=== PATIENT | male | born 1965 | race Asian ===

== ENCOUNTER 2023-12-09 17:46 | Inpatient (IN) | payer OTHER, SELFPAY ==
[2023-12-09] VITALS (7 sets, daily range): BP systolic 114–136; BP diastolic 81–106; BMI 28.7
--- NOTE | 2023-12-09 18:38 | HPS.HSE ---
Family Physician
-
Family Physician: NO INTERVIEW UNKNOWN
Chief Complaint
-
cabg eval from [facility] with lung mass that needs bronch/bx
History of Present Illness
58-year-old male Mandarin speaking, american sign language interpreter line was used, with a history of diabetes, hyperlipidemia, hypertension, smoking history who presents from outside hospital for CABG eval/high risk PCI along with lung mass likely requiring
bronchoscopy. Currently on heparin drip that was started at outside hospital. Review of records that were transferred with him had triple-vessel disease unable to provide him with CABG therefore was transferred to [place]. However on his CABG
preoperative workup CT chest was completed which demonstrated a left-sided perihilar mass.
Medical History
Past Medical History
Past Medical History: Reports CAD, HTN, Hypercholesterolemia and NIDDM
Past Surgical History: Reports Cholecystectomy
Social History
Unable to obtain full social history at this time due to: Language Barrier
Tobacco: Smoker
Alcohol: None
Drug: None
Personal: ( lives in [place])
Living: With Family
Employment: Employed
Family History
Family History: Hypertension
Allergies / Home Medications
Allergies reflects when Allergies were last updated in [facility].
Home Medications with original date entered in [facility]
Home medication
Metformin 500 mg twice a day
Metoprolol 25 mg daily
Lisinopril 10 mg daily
Atorvastatin 20 mg daily
Jardiance 10 mg once daily
Aspirin 81 mg
Allergy/Medication List:
nkda
Review of Systems
-
History Source: Patient
A 12 point ROS was completed and negative except as noted: Yes
Constitutional: Reports No Symptoms
EENT: Reports No Symptoms
Respiratory: Reports No Symptoms
Cardiac: Reports Other (intermimttent chest tight ness and sob)
Abdomen/GI: Reports No Symptoms
: Reports No Symptoms
Musculoskeletal: Reports No Symptoms
Skin: Reports No Symptoms
Neurological: Reports No Symptoms
Endocrine: Reports No Symptoms
Hematologic/Lymphatic: Reports No Symptoms
Psych: Reports No Symptoms
Physical Exam
Vital Signs
Vital Signs
Temp
98.6 F
12/09/23 17:49
Physical Exam
General: Well Developed, Well Nourished, No Apparent Distress and Comfortable
HEENT: NormoCephalic, Anicteric and Moist mucous membranes
Respiratory: Clear
Cardiac: S1/S2 and Regular Rhythm
Breast: Deferred by me
GI: Soft, Non Tender, Non Distended and Normal Bowel Sounds
Rectal: Deferred by Provider
Genito-urinary: Deferred by me
Musculoskeletal: No Clubbing and No Cyanosis
Skin: Warm and Dry
Neuro: Awake, Alert, Oriented and AO x 3
Psych: Calm and Intact Judgment/Insight
Data Reviewed
-
Old Records: Reviewed
Impression/Plan
-
IMPRESSION:
Lung mass�perihilar
Multivessel CAD
Diabetes
Hypertension
Hyperlipidemia
PLAN:
Left-sided lung mass, strong smoking history, clinical concern for lung CA however still considered unknown significance. Pulmonary to evaluate. Will likely require biopsy with bronchoscopy/
Multivessel CAD noted on left heart catheterization at outside hospital. Currently on heparin drip. Brought over for possible CABG evaluation versus high risk PCI depending on what this lung mass is. Suspect if benign likely can proceed if
cancerous will likely require undergoing treatment prior to CABG however would appreciate cardiology's input on this
-Change Lipitor to high intensity statin 40 mg at bedtime
Diabetes on metformin 500 mg twice daily at home. Accu-Cheks sliding scale carb controlled diet goal blood glucose 140-180
Hypertension continue antihypertensives
Hyperlipidemia continue statin
[2023-12-09] MEDS: LIPITOR 40 MG PO (19:23)
--- NOTE | 2023-12-09 19:28 | PTCARENOTE ---
Received pt. as direct admin into 6010 from [facility] @ 1800. Pt. mandarin speaking w some Jamaican; fish icer line utilized for assessment/admission questions. AAOx3, denies pain; reports chest tightness @ x's and has been ongoing x4 yrs; none @
this time; MD aware. SR on monitor. SpO2 98% on RA. +BS, abd soft/round/nt. Cont b/b. Stand by assisted from stretcher into bed. L AC w heparin gtt infusing- see flow sheet. Skin c/d/i. L arm nicotine patch in place on arrival to unit. Family
@ bedside and pt. updated on plan of care. Nightshift RN updated.
[2023-12-09] MEDS: HEPARIN 25000 UNITS/250 ML IV (19:33)
[2023-12-09 19:45] LABS: Hematocrit 45.3 % (39.0-52.0); Hemoglobin 15.9 g/dL (13.0-18.0); Mean Corp Hgb Conc. 35.1 g/dL (33.0-37.0); Mean Corpuscular Hgb 29.9 pg (27.0-31.0); Mean Corpuscular Volume 85.2 fL (80.0-94.0); Mean Platelet Volume 8.8 fL (7.4-10.4); Platelet Count 352 10^3/uL (130-400); Red Blood Cell Count 5.32 10^6/uL (4.70-6.10); Red Cell Dist. Width 12.5 % (11.5-14.5); White Blood Cell Count 7.7 10^3/uL (4.8-10.8)
[2023-12-09] MEDS: D5/0.45%NACL 1000 IV (19:45)
[2023-12-09 19:58] LABS: APTT 60.3 Sec (23.4-35.0)
--- NOTE | 2023-12-09 20:06 | PTCARENOTE ---
Received patient in bed with family at bedside. [place] Stitcher service used to translate as patient is mandarin speaking. Patient AAOx3, following commands, denying pain. Normal sinus, 70s-80s, BP stable, 110s/80s. Normothermic, palpable radial and
pedal pulses bilaterally, no edema. 96% on room air, lung sounds clear. Abdomen soft, round, nontender, positive bowel sounds. Patient ambulates to bathroom to void, steady gait. Nicotine patch on left arm. Left antecubital PIV WNL, heparin gtt and
IVF gtt ongoing per order. Labs sent, call white within reach.
[2023-12-09 21:40] LABS: Glucose - Point of Care 122 mg/dl (70-99)
[2023-12-10] VITALS (13 sets, daily range): BP systolic 109–137; BP diastolic 75–103; BMI 30.4
[2023-12-10 02:29] LABS: APTT 95.2 Sec (23.4-35.0)
[2023-12-10 06:08] LABS: % Basophils 0.8 % (0-2); % Eosinophils 5.4 % (0-6); % Immature Granulocytes 0.1 % (0-0.5); % Monocytes 6.7 % (1.7-9.3); Absolute Basophils 0.1 10^3/uL (0-0.2); Absolute Eosinophils 0.4 10^3/uL (0-0.7); Absolute Lymphocytes 3.7 10^3/uL (1.2-3.4); Absolute Monocytes 0.5 10^3/uL (0.1-0.6); Hematocrit 44.9 % (39.0-52.0); Hemoglobin 15.6 g/dL (13.0-18.0); Mean Corp Hgb Conc. 34.7 g/dL (33.0-37.0); Mean Corpuscular Hgb 29.6 pg (27.0-31.0); Mean Corpuscular Volume 85.2 fL (80.0-94.0); Mean Platelet Volume 8.8 fL (7.4-10.4); Nucleated Red Blood Cells % 0 % (-); Platelet Count 332 10^3/uL (130-400); Red Blood Cell Count 5.27 10^6/uL (4.70-6.10); Red Cell Dist. Width 12.6 % (11.5-14.5); White Blood Cell Count 7.8 10^3/uL (4.8-10.8)
[2023-12-10 06:51] LABS: ALT (SGPT) 73 U/L (0-50); AST (SGOT) 76 U/L (17-59); Albumin 4.3 g/dl (3.5-5.0); Alkaline Phosphatase 82 U/L (38-126); Blood Urea Nitrogen 18 mg/dl (9-20); Calcium 9.2 mg/dl (8.4-10.2); Carbon Dioxide 21 mmol/L (22-30); Chloride 105 mmol/L (98-107); Estimated Creatinine Clearance 91 ml/min; Glucose 135 mg/dl (70-99); Magnesium 2.2 mg/dl (1.6-2.3); Phosphorus 4.3 mg/dl (2.5-4.5); Potassium 4.4 mmol/L (3.5-5.1); Sodium 135 mmol/L (135-145); Total Bilirubin 0.9 mg/dl (0.2-1.3); Total Protein 7.4 g/dl (6.3-8.2); eGFR > 60.00
--- NOTE | 2023-12-10 07:19 | CON.INTV ---
Addendum entered and electronically signed by Frank Bhakta MD 12/10/23 10:41:
I reviewed CT image. Left lower lobe perihilar area abnormality appears to be improved compared to 12/05/2023, suggesting inflammatory process
At this point, would not pursue bronchoscopic evaluation given high risk coronary disease/cardiac disease
Would consider continued cardiac surgery evaluation
Recommend follow-up CT chest in 1 to [address] surgery
Original Note:
Consultation
Consultation Request
Date/Time Consultation Requested: 12/09
Date/Time Consultation Performed: 12/09
Reason for Consultation: Abnormal CAT scan
Medical History
-
History of Present Illness:
History obtained from the patient using speech language pathologist prn for Mandarin, medical records. Patient with a history of diabetes, hypertension, hyperlipidemia who does not see a physician regularly, presents to [facility] with shortness of breath, chest
pain. Workup revealed severe triple-vessel disease. Patient was started on heparin drip, transferred to [facility] for further evaluation. He was also noted to have possible left-sided perihilar mass per imaging. We are asked to comment
on his pulmonary process. He denies any cough, hemoptysis. Presently denies chest pain, lightheadedness, dizziness, fevers, falls, syncope, trauma. He is able to ambulate without difficulty.
Unfortunate, records are not available for my review at this time (CTS reviewing)
.
PMH: Hypertension, hyperlipidemia, diabetes. History of cholecystectomy. However patient does not see a physician regularly.
Past Medical History
Past Medical History: None (See above)
Past Surgical History: None ( see above)
Social History
Tobacco: Smoker (1 pack a day for greater than 20 years, ongoing)
Alcohol: Occasional (When I am happy)
Drug: None
Personal:
Living: With Family (Currently lives with sister. is in [place]. Patient has been in the [place] 4 years)
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
Environmental Exposures: Denies history of tuberculosis exposure
Family History
Family History: Other (3 siblings healthy. 2 children healthy. Father during surgery for his heart, details unclear. Mother is alive in [place])
Allergies / Home Medications
Allergies
Allergy/AdvReac Type Severity Reaction Status Date / Time
No Known Allergies Allergy Unverified 12/09/23 18:34
Home Medications
�Medication �Instructions �Recorded �Confirmed �Last Taken �Type
aspirin 81 mg tablet 81 mg PO DAILY 12/09/23 12/09/23 Unknown History
atorvastatin 20 mg tablet (Lipitor) 20 mg PO HS 12/09/23 12/09/23 Unknown History
empagliflozin 10 mg tablet 10 mg PO DAILY 12/09/23 12/09/23 Unknown History
(Jardiance)
lisinopril 10 mg tablet 10 mg PO DAILY 12/09/23 12/09/23 Unknown History
metformin 500 mg PO BID 12/09/23 12/09/23 Unknown History
metoprolol succinate 25 mg PO DAILY 12/09/23 12/09/23 Unknown History
Review of Systems
-
All other systems: Negative unless noted
Vitals / Labs / Diagnostic Testing
Vital Signs
Temp Pulse Resp BP Pulse Ox
97.8 F 55 17 117/81 95
12/10/23 07:08 12/10/23 06:00 12/10/23 06:00 12/10/23 06:00 12/10/23 06:00
Lab Data
12/10/23 05:56
12/10/23 05:56
Laboratory Results
12/09/23 12/10/23 12/10/23
19:40 01:51 06:00
PT Cancelled
INR Cancelled
APTT 60.3 H 95.2 H Cancelled
Diagnostic Testing:
Physical Exam
-
HEENT: Normocephalic and Anicteric
Cardiovascular: S1/S2, Regular Rhythm, Murmur (n), Rub (n) and Peripheral Edema (n)
Respiratory: Wheeze (n), Rales (n) and Rhonchi (n)
GI: Soft, Non Distended and Non Tender
Neurology: Awake, Alert and No Motor Deficits (Moves all extremities)
Skin: Other (No clubbing, no cyanosis)
General: Comfortable
Assessment
-
58-year-old male who presented to outside hospital, found to have triple-vessel coronary disease per catheterization. On imaging, was noted to have possible left perihilar mass. Transferred to [facility] for further workup.
Triple-vessel coronary disease
High risk for PCI (per [facility])
Left parahilar abnormality
Inflammatory appearing per my review
Small pulmonary nodule, less than 5 mm
Hyperglycemia, diabetes
Abnormal EKG (inferior Q-wave)
Conditions present prior to admission
Hypertension/hyperlipidemia
Diabetes
20+ pack-year history of smoking, ongoing
Family history of coronary disease
Father during surgery, details unclear
Plan/recommendations
At this time, patient appears to be comfortable. He is without chest pain or shortness of breath. Chest exam is clear
I reviewed his films from [facility]. He has a mild inflammatory appearing left perihilar abnormality, does not appear to be a mass per my review
Images were incomplete for my review
Presently is on heparin therapy. EKG with sinus bradycardia, inferior Q-wave noted
Moving forward
Await repeat imaging of the chest
Suspect inflammatory lesion. Depending on appearance, will determine need for bronchoscopy. Patient would be high risk given coronary disease
Remains on heparin drip. Chest pain-free at this time
Will review [facility] records when available
Discussed with patient importance of tobacco cessation.
He plans to stop smoking
History was obtained using Composer[employer] photographic engineer. All questions answered
Reviewed with critical care nursing, CT surgery PA, primary service
Will follow
[2023-12-10 08:38] LABS: APTT 89.8 Sec (23.4-35.0)
--- NOTE | 2023-12-10 08:58 | CON.CAR ---
Addendum entered and electronically signed by Brayan Guido MD 12/10/23 16:29:
58 yo male with HTN, hyperlipidemia, DM, tobacco transferred to for inpatient CABG evaluation. Cath at [facility] showed multivessel CAD. Echo here is normal. He is currently chest pain free. Exam with RRR, no murmurs, no edema. Tele: SR/SB 50s-60s.
CAD/unstable angina
-cont ASA, heparin gtt, Toprol XL, statin
-inpatient CABG eval
Original Note:
Consultation
Consultation Request
Date/Time Consultation Requested: 12/09/2023 18:20
Date/Time Consultation Performed: 12/10/2023 09:00
Requesting Provider: Dr. Wes Farias
Performing Provider: CARL Truong for Dr. Guido
Reason for Consultation: MVCAD
Medical History
-
Chief Complaint: Chest pain
History of Present Illness:
Will Pham is a 58-year-old male with hypertension, dyslipidemia, type 2 diabetes mellitus on oral agents, family history of coronary artery disease, current smoker and recent diagnosis of multivessel coronary artery disease who presents for CABG
evaluation. Initially, he saw his PCP for chest pressure/squeezing that occurred while he was driving. He was referred for stress testing. This was abnormal. He was referred for cardiac catheterization at [facility]. He was diagnosed with multivessel
coronary artery disease. He was also found to have an abnormal CT scan with what appears to be inflammatory changes. He was transferred to [facility] for evaluation for CABG versus high risk PCI. He had an abdomen/pelvis CT scan this
morning. Pulmonary is following. He will be evaluated by cardiac surgery. He is having no chest pain. He is not short of breath. He is currently on a heparin drip. He is not requiring any vasopressor support.
Past Medical History
Past Medical History: CAD, HTN, Hypercholesterolemia and NIDDM
Past Surgical History: Cholecystectomy and Other (Umbilical hernia repair)
Social History
Tobacco: Smoker
Drug: None
Personal: ( resides in [place])
Living: With Family
Employment: Employed
Family History
Family History: CAD (In mother and father, age is unknown)
Allergies / Home Medications
Allergy/AdvReac Type Severity Reaction Status Date / Time
No Known Allergies Allergy Unverified 12/09/23 18:34
�Medication �Instructions �Recorded �Confirmed �Type
aspirin 81 mg tablet 81 mg PO DAILY 12/09/23 12/09/23 History
atorvastatin 20 mg tablet (Lipitor) 20 mg PO HS 12/09/23 12/09/23 History
empagliflozin 10 mg tablet 10 mg PO DAILY 12/09/23 12/09/23 History
(Jardiance)
lisinopril 10 mg tablet 10 mg PO DAILY 12/09/23 12/09/23 History
metformin 500 mg PO BID 12/09/23 12/09/23 History
metoprolol succinate 25 mg PO DAILY 12/09/23 12/09/23 History
Review of Systems
-
Unable to obtain full review of systems at this time due to: Language Barrier (Mandarin)
All other systems: Negative unless noted
Constitutional: No Symptoms
EENT: No Symptoms
Respiratory: No Symptoms
Cardiac: No Symptoms
Abdomen/GI: No Symptoms
: No Symptoms
Musculoskeletal: No Symptoms
Skin: No Symptoms
Neurological: No Symptoms
Endocrine: No Symptoms
Hematologic/Lymphatic: No Symptoms
Physical Exam
Vital Signs
Temp Pulse Resp BP Pulse Ox
97.8 F 55 17 117/81 95
12/10/23 07:08 12/10/23 06:00 12/10/23 06:00 12/10/23 06:00 12/10/23 06:00
Lab Results
12/10/23 05:56
12/10/23 05:56
Physical Exam
General: Well Developed, Well Nourished, No Apparent Distress and Comfortable
HEENT: Normocephalic, Anicteric and Moist Mucous Membranes
Respiratory: Clear and Non Labored Respirations
Cardiac: S1/S2 and Regular Rhythm; Negative Peripheral Edema
Breast: Deferred by me
GI: Soft, Non Tender, Non Distended and Normal Bowel Sounds
Rectal: Deferred by Provider
Genito-urinary: No Costovertebral Tender
Musculoskeletal: No Clubbing, No Cyanosis and No Edema
Skin: Warm and Dry
Neuro: AO x 3
Hematologic/Lymphatic: No Lymphadenopathy
Psych: Calm
Impression / Plan
-
Background: 58M with hypertension, dyslipidemia, current smoker, and family history of coronary artery disease transferred from [facility] for CABG evaluation
Greenkeeper: Dr. Paige
MVAD, presented as [place]
-CABG evaluation
-Continue ASA/heparin gtt
-Hold ACEi for now (pending possible surgery, date unknown)
-Echocardiogram today
Abnormal chest CT
-Scattered small indeterminate mediastinal lymph nodes, most prominent precarinal and prevascular
-Pulmonary following
NIDDM, Hgba1c pending
HLD, increase atorvastatin to 40mg
Current smoker, 1 PPD for nearly 30 years, full cessation recommended
Obesity, BMI 30.4
Data Reviewed
-
Radiology: Report Reviewed by me (CXR: Mild left to right mediastinal shift.)
Labs: Labs Reviewed by me
Old Records: Requested
--- NOTE | 2023-12-10 09:05 | CONSULT.CT ---
Consultation
-
Date/Time Consultation Requested: 12/09/2023
Date/Time Consultation Performed: 12/10/2023
Performing Provider: Jerson varela
Reason for Consultation: Evaluation for CABG
Patient History
Physicians
Family Physician: Regina Mcduffie
Outpatient Community Educator: Dr. Paige
History of Present Illness
Patient was interviewed with video equities trader. Patient only speaks Ethiopian.
Patient is a 58-year-old male with past medical history of type 2 diabetes mellitus poorly controlled on p.o. meds. Also past medical history of hypertension, hyperlipidemia, obesity, active tobacco abuse.
Patient complains of ongoing mid sternal chest pain. Pain radiates to neck and lasts approximately 15 to 20 minutes and resolves with rest. Chest pain is not aggravated or relieved by exertion or rest. Patient reports pain starting approximately
6 months ago with episodes that now have become more frequent and have increased in severity.
He underwent stress testing which was markedly abnormal with area of severe ischemia in the lateral wall. Patient had extremely poor exercise performance and marked ST segment changes.
He was admitted to [facility] for further evaluation. Cardiac catheterization was performed on December 05, 2023. Left ventricular ejection fraction noted to be 55%. Left main showed minor luminal irregularities. Left anterior descending
coronary artery had a 95% mid LAD stenosis. Left circumflex had a 90% stenosis of the large OM. Right coronary artery had a 75% proximal stenosis. Plan was to transfer to [facility] for CABG.
Prior to transfer patient found to have a left upper lobe nodule which will be evaluated by pulmonary. Patient has been in the [place] since 2019 and denies any history of pneumonia or prior TB exposure. He also has not been compliant with
some of his medications. And has no regular follow-up with PCP.
Plan to be evaluated by pulmonary medicine and repeat CAT scan performed. Discussion for bronchoscopy and follow-up biopsy if needed.
Will be seen by attending cardiothoracic surgeon later today. All preoperative studies will be ordered. Will follow-up after repeat CAT scan, PFTs, ABG, and carotid ultrasound.
Past Medical History
Past Medical History: Angina, CAD, COPD, GUILLORY, HTN, Hypercholesterolemia, NIDDM and SOB
History of gallstone pancreatitis, COPD with long smoking history
Past Surgical History
Past Surgical History: Abdominal and Cholecystectomy
Cholecystectomy in 2022
Umbilical hernia repair in June 2022
Family History
Mother: Still Living (Mother with hypertension, diabetes )
Father: Still Living (Hypertension, hyperlipidemia, diabetes)
Family Medical History: Hypertension
Social History
Alcohol: Occasional
Drug: None
Tobacco: Smoker (Smokes 1 pack/day since 22 years of age)
Personal: ( and daughter live in [place])
Living: With Family (Lives with sister)
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
Allergies
Allergy/AdvReac Type Severity Reaction Status Date / Time
No Known Allergies Allergy Unverified 12/09/23 18:34
Home Medications
�Medication �Instructions �Recorded �Confirmed �Type
aspirin 81 mg tablet 81 mg PO DAILY 12/09/23 12/09/23 History
atorvastatin 20 mg tablet (Lipitor) 20 mg PO HS 12/09/23 12/09/23 History
empagliflozin 10 mg tablet 10 mg PO DAILY 12/09/23 12/09/23 History
(Jardiance)
lisinopril 10 mg tablet 10 mg PO DAILY 12/09/23 12/09/23 History
metformin 500 mg PO BID 12/09/23 12/09/23 History
metoprolol succinate 25 mg PO DAILY 12/09/23 12/09/23 History
Review of Systems
-
History Source: Patient and Transfer Record
General: Reports No Symptoms
HEENT: Reports No Symptoms
Respiratory: Reports SOB and GUILLORY
Cardiac: Reports Chest Pain and CAD
Abdomen/GI: Reports No Symptoms
: Reports No Symptoms
Musculoskeletal: Reports No Symptoms
Skin: Reports No Symptoms
Neurological: Reports No Symptoms
Vascular: Reports No Symptoms
Physical Exam
Vital Signs
Temp 97.8 F 12/10/23 07:08
Temp route: Oral 12/10/23 07:08
Pulse 71 12/10/23 08:12
Rhythm: Normal sinus rhythm 12/09/23 19:50
Resp Rate 17 12/10/23 06:00
Blood pressure 123/90 12/10/23 08:12
MAP (cuff-Yassine Monitor) 101 12/10/23 08:12
SaO2 95 12/10/23 08:12
Oxygen Mode of Delivery Room air 12/09/23 19:54
Can the patient verbally communicate their pain? Yes 12/09/23 19:50
Actual Weight 182 lb 12.211 oz 12/10/23 05:58
Body Mass Index (BMI) 30.4 12/10/23 05:58
Labs
12/10/23 05:56
12/10/23 05:56
PT Cancelled 12/10/23 06:00
APTT 89.8 Sec (23.4-35.0) H 12/10/23 08:19
Exam
General: Well Developed, Well Nourished, No Apparent Distress and Comfortable
HEENT: Normocephalic, Anicteric and Atraumatic
Neck: Trachea Midline
Respiratory: Clear and Crackles (Crackles at bases bilaterally.)
Cardiac: Regular Rhythm
GI: Soft, Non Tender, Non Distended and Normal Bowel Sounds
Rectal: Deferred by Provider
Skin: Warm and Dry
Neuro: Awake, Alert, Oriented and AO x 3
Extremities: Pulses (Distal pulses intact bilaterally, dorsalis pedis pulses +2 bilaterally, posterior tibial pulses +1 bilaterally, no lower extremity edema, no visible varicosities)
Lymph: No Lymphadenopathy
Psych: Calm
Assessment / Plan
-
Assessment:
Three-vessel coronary artery disease, plan for CABG later this week or early next week.
Type 2 diabetes mellitus
Obesity
Hypertension
Hyperlipidemia
Left upper lobe nodule-repeat CAT scan and follow-up bronchoscopy and biopsy if needed
COPD
Tobacco abuse
Plan:
Attending cardiothoracic surgeon to review all studies and will follow-up later and discuss surgical plan and timing with patient.
[2023-12-10] MEDS: NOVOLOG FLEXPEN-LOW RESISTANCE SC ×3 (10:10→17:26)
[2023-12-10 10:18] LABS: Glucose - Point of Care 116 mg/dl (70-99)
[2023-12-10] MEDS: LOW STRENGTH ASPIRIN 81 MG PO (10:20)
[2023-12-10] MEDS: TOPROL XL 25 MG PO (10:21)
[2023-12-10 11:02] LABS: Glycohemoglobin (HgbA1c) 7.5 % (4.0-5.6)
--- NOTE | 2023-12-10 11:35 | CM ---
CM following re: discharge planning.
Reviewed pt's chart, met with pt and pt's sister Yuli at bedside.
Pt is a 58 year old Croatian speaking male, admitted with primary dx of Left-sided lung mass.
Pt was born and grew up in [place], immigrated [place] [facility] [place] [place] 4 years ago, lives with sister in a 2[address], 3 steps to enter. Pt's spouse and daughter live in [place]. Per sister, pt is independent in all areas [place], drives, works.
PCP: Dr. Parker
Pharmacy: [facility].
D/C plan: home with anticipated no needs. Sister to transport at discharge.
CM will follow with discharge plan updates as hospitalization progresses
[2023-12-10 12:06] LABS: Glucose - Point of Care 120 mg/dl (70-99)
[2023-12-10] MEDS: D5/0.45%NACL 1000 IV (12:14)
--- NOTE | 2023-12-10 12:48 | W.PN.HOSP.TC ---
Today's Communication/Plan
-
transfer to IVU
continue hep gtt
CCDiet/Low chol diet
Cabg for 12/16/23
Assessment / Plan
Assessment / Plan
General: No Apparent Distress, mandrin speaking male sitting in bed comfortably
HEENT: Normocephalic, Atraumatic and Moist Mucous Membranes. No JVD
Respiratory: CTA B/L, No rales or crackles or wheezes.
Cardiac: Regular Rhythm and S1/S2.
GI: Soft, NT, ND, BS+
Musculoskeletal: No Cyanosis , No Edema
Skin: Dry
Neuro: aao x3
Psych: normal affect
PLAN:
Left-sided lung mass, for which I discussed this with pulmonary this morning. Believed to be more inflammatory than mass. Will hold off on bronchoscopy at this time. If CT surgery wants it then they would consider at that time.
Multivessel CAD noted on left heart catheterization at outside hospital. Currently on heparin drip. Brought over for possible CABG evaluation versus high risk PCI depending on what this lung mass is. Suspect if benign likely can proceed if
cancerous will likely require undergoing treatment prior to CABG however would appreciate cardiology's input on this
-CT surgery planning for CABG on Saturday (12/15)
-Change Lipitor to high intensity statin 40 mg at bedtime
Diabetes on metformin 500 mg twice daily at home. Accu-Cheks sliding scale carb controlled diet goal blood glucose 140-180
-Metformin held while inpatient. Provide ssi. CCDiet/low chol diet
Hypertension continue antihypertensives
Hyperlipidemia continue statin
Anticipated Discharge: > 48 hours
Subjective/Interval History
-
Date of Service: December 10, 2023
Seen and examined. No new complaints. No acute overnight events
Remains on a heparin drip
Transferring to IVU
Objective Data
-
Labs:
Laboratory Results
12/10/23 12/10/23 12/10/23
01:51 05:56 06:00
WBC 7.8
Hgb 15.6
Hct 44.9
Plt Count 332
PT Cancelled
INR Cancelled
APTT 95.2 H Cancelled
Sodium 135
Potassium 4.4
Chloride 105
Carbon Dioxide 21 L
BUN 18
Creatinine 0.9
Glucose 135 H
Calcium 9.2
Total Bilirubin 0.9
AST 76 H
ALT 73 H
Alkaline Phosphatase 82
12/10/23
08:19
WBC
Hgb
Hct
Plt Count
PT
INR
APTT 89.8 H
Sodium
Potassium
Chloride
Carbon Dioxide
BUN
Creatinine
Glucose
Calcium
Total Bilirubin
AST
ALT
Alkaline Phosphatase
CTChest
IMPRESSION:
Thoracic aorta normal in caliber with some calcific atherosclerotic changes of the thoracic aortic arch.
Abdominal aorta within the limits of normal in caliber with calcific atherosclerotic changes.
Overall limited evaluation without intravenous contrast.
Scattered small indeterminate mediastinal lymph nodes, most prominent precarinal and prevascular.
Prior cholecystectomy.
Colonic diverticulosis.
Vital Signs:
Vital Signs
Temp Pulse Resp BP Pulse Ox
98.5 F 78 20 137/103 97
12/10/23 11:59 12/10/23 12:00 12/10/23 12:31 12/10/23 12:00 12/10/23 12:00
I&O
12/09/23 12/10/23 12/11/23
06:59 06:59 06:59
Intake Total 812 / 826 130 / 130
Balance 812 / 826 130 / 130
--- NOTE | 2023-12-10 13:09 | W.PN.UPDATE ---
Update Note
Progress Note Update
I reviewed CT chest findings at length with patient and sister at bedside who acted as health and safety technician
His left lung abnormality has improved compared to 12/04, but not completely resolved
His small right upper lobe nodule has not changed at all compared to his imaging from 12/04. I cannot appreciate his pulmonary nodule on the left side, this is since resolved as well
Discussed at length his high risk for lung cancer
Discussed absolute importance of tobacco cessation especially given pending surgery
Discussed at length importance of follow-up CT chest in approximately 3 months given risk for lung cancer
Patient should follow-up with pulmonary at that time.
I provided my information to the patient's sister and also left my information in the chart
She understands as does he importance of tobacco cessation and follow-up CT chest in 3 months given risk for lung cancer
Patient has been transferred to IVU. Critical care service will sign off for now
Pending surgery 12/16/2023 noted
Please call with questions
--- NOTE | 2023-12-10 14:36 | PTCARENOTE ---
Patient was updated on plan of care as was his sister utilizing the per diem interpreter ipad. He remains on heparin gtt and IVF. Voiding in the bathroom, denies chest pain/any other pain so far this shift, eating cholesterol lowering diet. Pt waiting to go
to PFT.
--- NOTE | 2023-12-10 15:09 | W.PN.UPDATE ---
Update Note
Progress Note Update
�[email or web address]
Simulated Patient Summary
Procedure Type:�Isolated CABG
PERIOPERATIVE OUTCOME ESTIMATE %
Operative Mortality 0.366%
Morbidity & Mortality 3.99%
Stroke 0.803%
Renal Failure 0.368%
Reoperation 1.99%
Prolonged Ventilation 2.28%
Deep Sternal Wound Infection 0.292%
Long Hospital Stay (>14 days) 1.58%
Short Hospital Stay (<6 days)* 66.6%
*higher values reflect a better outcome
Clinical Summary
Planned Surgery: Isolated CABG, Urgent, First cardiovascular surgery
Demographics: 58 year old, , male, 83kg, 165cm, BMI: 30.5 kg/m�
Insurance/Payor: Commercial
Lab Values: Creatinine: 0.9 mg/dL, Hematocrit: 44.9%, WBC Count: 7.8 10�/�L, Platelet Count: 816011 cells/�L
PreOp Medications: Oral diabetes control
Substance Abuse: Current smoker, Alcohol use: <=1 drink/week
Risk Factors / Comorbidities: Diabetes Mellitus , Hypertension, Family Hx of CAD
Pulmonary RF: Mild CLD
Cardiac Status: NYHA Class II, Ejection Fraction = 55%
--- NOTE | 2023-12-10 16:34 | PTCARENOTE ---
Gave report to receiving RN on IVU, Ana. Patient currently down getting PFT. Pt's sister went with him to test to translate. Pt left with heparin gtt, but will need to be reconnected to IVF upon return to floor
[2023-12-10 17:12] LABS: Glucose - Point of Care 107 mg/dl (70-99)
[2023-12-10] MEDS: LIPITOR 40 MG PO (17:31)
--- NOTE | 2023-12-10 17:43 | W.PN.UPDATE ---
Update Note
Progress Note Update
Patient's tentative surgery date will be SaturdayDecember [address]. I got called to bedside to speak with the patient and his sister. He asked if he could leave and come back for his surgery. When I asked if he had any episodes of chest pain, he
denied. However, when clarifying that we are concerned of chest pain/discomfort, he did endorse some discomfort at [facility]. Therefore, I recommended continuing the heparin infusion and Dr. Stout will meet with him tomorrow.
[2023-12-10] MEDS: HEPARIN 25000 UNITS/250 ML IV (18:39)
--- NOTE | 2023-12-10 19:13 | PTCARENOTE ---
Pt received from ICU at 1650. Pt with his polish speaking sister. Pt's sister relayed that the pt had no chest pain or sob. Heparin infusing as ordered. No c/o offered.
[2023-12-10 22:57] LABS: Glucose - Point of Care 135 mg/dl (70-99)
[2023-12-11] VITALS (7 sets, daily range): BP systolic 101–131; BP diastolic 67–95; BMI 28.4
[2023-12-11 03:34] LABS: Hemoglobin 16.2 g/dL (13.0-18.0); Mean Corp Hgb Conc. 35.2 g/dL (33.0-37.0); Mean Corpuscular Hgb 29.8 pg (27.0-31.0); Mean Corpuscular Volume 84.6 fL (80.0-94.0); Mean Platelet Volume 8.9 fL (7.4-10.4); Platelet Count 328 10^3/uL (130-400); Red Blood Cell Count 5.44 10^6/uL (4.70-6.10); Red Cell Dist. Width 12.4 % (11.5-14.5); White Blood Cell Count 7.6 10^3/uL (4.8-10.8)
[2023-12-11 03:54] LABS: INR 1.09; PT 13.9 Sec (11.4-14.6)
[2023-12-11 03:55] LABS: APTT 83.9 Sec (23.4-35.0)
[2023-12-11 04:28] LABS: ALT (SGPT) 133 U/L (0-50); AST (SGOT) 111 U/L (17-59); Albumin 4.5 g/dl (3.5-5.0); Alkaline Phosphatase 82 U/L (38-126); Blood Urea Nitrogen 18 mg/dl (9-20); Calcium 9.1 mg/dl (8.4-10.2); Carbon Dioxide 22 mmol/L (22-30); Chloride 103 mmol/L (98-107); Direct Bilirubin 0.3 mg/dl (0.0-0.4); Estimated Creatinine Clearance 102 ml/min; Glucose 129 mg/dl (70-99); Potassium 4.7 mmol/L (3.5-5.1); Sodium 135 mmol/L (135-145); Total Bilirubin 1.2 mg/dl (0.2-1.3); Total Protein 7.6 g/dl (6.3-8.2); eGFR > 60.00
[2023-12-11 05:24] LABS: B.E. 0.8 mmol/L; HCO3 24.3 mmol/L (21-28); O2 Saturation % 97.6 % (94-98); PCO2 35 mmHg (35-48); PO2 77 mmHg (83-108); pH 7.45 (7.35-7.45)
--- NOTE | 2023-12-11 07:08 | W.PN.CT ---
Today's Communication / Plan
-
Plan:
-denies CP overnight. On iv Heparin @ 1400 (renewed)
-Patient's tentative surgery date will be SaturdayDecember [address] Stout.
Assessment / Plan
-
Assessment:
Three-vessel coronary artery disease
Type 2 diabetes mellitus
Obesity
Hypertension
Hyperlipidemia
Left upper lobe nodule-repeat CAT scan and follow-up bronchoscopy and biopsy if needed
COPD
Tobacco abuse
Discussed patient care with: Nursing and Care Team
Subjective
-
Date of Service: December 11, 2023
Objective Data
-
Lab Results
12/11/23 03:23
12/11/23 03:23
PT 13.9 Sec (11.4-14.6) 12/11/23 03:23
INR 1.09 12/11/23 03:23
APTT 83.9 Sec (23.4-35.0) H 12/11/23 03:23
Vital Signs
Vital Signs
Temp Pulse Resp BP Pulse Ox
98.2 F 68 16 119/87 98
12/11/23 04:49 12/11/23 04:00 12/11/23 04:49 12/11/23 03:06 12/11/23 04:49
CT Intake/Output/Weight
12/10/23 12/11/23 12/11/23
18:59 06:59 18:59
Intake Total 740 / 1220 480 / 1220
Balance 740 / 1220 480 / 1220
SaO2: 98
Physical Exam
-
General: Awake and AOx3
Cardiovascular: Regular rate & rhythm and No Murmurs
Respiratory: Clear and Decreased Breath Sounds
Extremities: No Edema
Data Reviewed
-
Lab Results: Results Reviewed
Medications: Active Meds Reviewed
Chest X-Ray: Report Reviewed
CT Scan: Report Reviewed
[2023-12-11 07:12] LABS: Glucose - Point of Care 133 mg/dl (70-99)
[2023-12-11] MEDS: NOVOLOG FLEXPEN-LOW RESISTANCE SC ×3 (07:40→18:08)
[2023-12-11] MEDS: LOW STRENGTH ASPIRIN 81 MG PO (09:25)
[2023-12-11] MEDS: TOPROL XL 25 MG PO (09:25)
--- NOTE | 2023-12-11 10:46 | W.PN.UPDATE ---
Update Note
Progress Note Update
CARDIAC SURGERY ATTENDING:
It was my pleasure to meet with Mr. Pham this afternoon at his bedside. We reviewed his pathology, discussed the proposed operative interventions, reviewed the perioperative risks (including, but not limited to, , stroke, [place], arrhythmia,
pneumonia, ROBERTO/F, bleeding, and infection), discussed the expected and hospital postprocedural course, and reviewed the expected outpatient recovery. All questions were answered to the best of my abilities. The patient is agreeable to proceed. I
anticipate CABG x 3 with NORBERTO to LAD, left radial artery to OM, and greater saphenous vein to PDA). We will plan to proceed to the OR this coming Saturday12/16/2023. All of our preoperative discussions were had with the aid of a [place] spanish medical interpreter.
Informed consent was obtained.
Thank you for the opportunity to participate in the care of this kind gentleman.
Please call with any questions or concerns.
Titi Stout MD
[phone]
--- NOTE | 2023-12-11 11:14 | CM ---
Addendum entered by Luna Elliott 12/11/23 12:53:
Gave him the Cardiothoracic Surgery Educational Booklet.
Original Note:
Reviewed chart. Mr. Pham was transferred to IVU. Met with Mr. Pham to review discharge plans. Used the interpreter translator language line to review discharge plans. He states prior to admission he resides with his sister in a one story home with two
steps to enter. He states prior to admission he was independent with ambulation and adls. He states he does not have any DME in the home. He states he has a prescription plan. He states his sister will be available to assist in his care. Medical
work-up in progress. The discharge plan is to return home with his sister and a home visit by the Cardiothoracic Transitional Care Nurse when medically stable,
We reviewed pre-op and post-op routines. Briefly reviewed the shower instructions. We reviewed restrictions including sternal precautions and driving restrictions. Also discussed a home visit by the Cardiothoracic Transitional Care Nurse. He is
agreeable to a home visit. Gave him the Cardiothoracic Transitional Care Nurse. He is agreeable to a home visit. The plan is for CABG on Saturday12/16/23.
[2023-12-11 12:47] LABS: Glucose - Point of Care 100 mg/dl (70-99)
[2023-12-11] MEDS: HEPARIN 25000 UNITS/250 ML IV (12:51)
--- NOTE | 2023-12-11 15:44 | W.PN.HOSP.TC ---
Today's Communication/Plan
-
for cabg. planned for 12/15
continue iv heparin
Assessment / Plan
Assessment / Plan
General: No Apparent Distress, mandrin speaking male sitting in bed comfortably
HEENT: Normocephalic, Atraumatic and Moist Mucous Membranes. No JVD
Respiratory: CTA B/L, No rales or crackles or wheezes.
Cardiac: Regular Rhythm and S1/S2.
GI: Soft, NT, ND, BS+
Musculoskeletal: No Cyanosis , No Edema
Skin: Dry
Neuro: aao x3
Psych: normal affect
PLAN:
Left-sided lung mass, for which I discussed this with pulmonary this morning. Believed to be more inflammatory than mass. Will hold off on bronchoscopy at this time. If CT surgery wants it then they would consider at that time.
Multivessel CAD noted on left heart catheterization at outside hospital. Currently on heparin drip. Brought over for possible CABG evaluation versus high risk PCI depending on what this lung mass is. Suspect if benign likely can proceed if
cancerous will likely require undergoing treatment prior to CABG however would appreciate cardiology's input on this
-CT surgery planning for CABG on Saturday (12/15)
-Change Lipitor to high intensity statin 40 mg at bedtime
Diabetes on metformin 500 mg twice daily at home. Accu-Cheks sliding scale carb controlled diet goal blood glucose 140-180
-Metformin held while inpatient. Provide ssi. CCDiet/low chol diet
Hypertension continue antihypertensives
Hyperlipidemia continue statin
Anticipated Discharge: > 48 hours
Subjective/Interval History
-
Date of Service: December 11, 2023
seen and examined. no new complaitns. no acute overnight events
Objective Data
-
Labs:
Laboratory Results
12/11/23 12/11/23
03:23 05:14
PT 13.9
INR 1.09
APTT 83.9 H
HCO3 24.3
Sodium 135
Potassium 4.7
Chloride 103
Carbon Dioxide 22
BUN 18
Creatinine 0.8
Glucose 129 H
Calcium 9.1
Total Bilirubin 1.2
AST 111 H
ALT 133 H
Alkaline Phosphatase 82
Vital Signs:
Vital Signs
Temp Pulse Resp BP Pulse Ox
98.4 F 61 18 123/78 94
12/11/23 14:53 12/11/23 14:53 12/11/23 14:53 12/11/23 11:25 12/11/23 14:53
I&O
12/10/23 12/11/23 12/12/23
06:59 06:59 06:59
Intake Total 812 / 826 1220 / 1220
Balance 812 / 826 1220 / 1220
[2023-12-11] MEDS: HYDROCORTISONE 1% CREAM 1 APPLIC TOPICAL (16:56)
[2023-12-11] MEDS: LIPITOR 40 MG PO (16:57)
[2023-12-11 17:40] LABS: Glucose - Point of Care 117 mg/dl (70-99)
--- NOTE | 2023-12-11 17:48 | W.PN.PUL3 ---
Today's Communication / Plan
-
Continue with cardiac, CT surgery management
Will be seen by printmaker postsurgery 12/15
Call with questions in the interim
Assessment
-
58-year-old male who presented to outside hospital, found to have triple-vessel coronary disease per catheterization. On imaging, was noted to have possible left perihilar mass. Transferred to [facility] for further workup.
Triple-vessel coronary disease
High risk for PCI (per [facility])
Left parahilar abnormality
Inflammatory appearing per my review
Small pulmonary nodule, less than 5 mm
Hyperglycemia, diabetes
Abnormal EKG (inferior Q-wave)
Conditions present prior to admission
Hypertension/hyperlipidemia
Diabetes
20+ pack-year history of smoking, ongoing
Family history of coronary disease
Father during surgery, details unclear
Plan/recommendations
At this time, patient appears to be comfortable. He is without chest pain or shortness of breath. Chest exam is clear
I reviewed his films from [facility].
I reviewed his current CT chest. Improvement in his left perihilar process
Denies any cough
Moving forward
Continue with management per CT surgery, cardiology
Remains on heparin drip. Chest pain-free at this time
Discussed with patient importance of tobacco cessation.
He plans to stop smoking
Sister was at bedside to act as science interpreter. All questions answered
We will follow from printmaker standpoint after surgery on Friday 12/15
Please call with questions
Subjective Data
-
Date of Service:
Date of Service: December 11, 2023
Subjective:
Patient feels well. Sister at bedside to act as science interpreter. Denies chest pain, shortness of breath. Appears to be in good spirits
Objective Data
Data Reviewed
Vital Signs / I&O / Oxygen:
Vital Signs
Temp Pulse Resp BP Pulse Ox
98.4 F 61 18 123/78 94
12/11/23 14:53 12/11/23 14:53 12/11/23 14:53 12/11/23 11:25 12/11/23 14:53
Intake and Output
12/10/23 12/11/23 12/12/23
06:59 06:59 06:59
Intake Total 812 / 826 1220 / 1220
Balance 812 / 826 1220 / 1220
SaO2 94
Physical Exam
General: Comfortable
HEENT: Normocephalic and Anicteric
Cardiovascular: S1-S2, Regular Rhythm, Murmur (n) and Rub (n)
Respiratory: Wheeze (n), Crackles (n), Rhonchi (n) and Non-Labored Respirations
GI: Soft, Non Distended and Non Tender
Neurology: Awake, Alert and No Motor Deficits
Skin: Cyanosis (n), Jaundice (n) and Rash (n)
Labs/Micro/Reports
Lab Data
12/11/23 03:23
12/11/23 15:43
Laboratory Results
12/11/23 12/11/23
03:23 05:14
PT 13.9
INR 1.09
APTT 83.9 H
pH 7.45
pCO2 35
pO2 77 L
HCO3 24.3
O2 Delivery Level
--- NOTE | 2023-12-11 18:16 | PTCARENOTE ---
Pt c/o of itching areas on right chest, right inner knee and left upper thigh. CV nurse practitioner notified. Medicated with hydrocortisone cream as ordered with relief.
[2023-12-11] MEDS: BENADRYL 25 MG IV (20:49)
--- NOTE | 2023-12-11 22:04 | W.PN.UPDATE ---
Update Note
Progress Note Update
-pt developed itching hives tonight on his abdomen and both thighs, R>L. Denies any difficulty breathing, no stridor or wheeze. No chest pain since has been here. He is feeling better after getting iv Benadryl. Will give another 1-2 doses of po
Benadryl. Discussed with Dr. Stout - will continue iv Heparin and ASA for now. He has not been getting Zestril at (was held). Will hold Lipitor and Toprol for now and review with Cardiology in am. Pt says that he has been taking ASA at home for
the past 1-2 months and had no rash.
[2023-12-11 22:36] LABS: Glucose - Point of Care 120 mg/dl (70-99)
--- NOTE | 2023-12-11 23:22 | PTCARENOTE ---
Pt. came out of room at 2044 complaining of itching/rash bilateral thighs, stomach & back. Raised hives assessed in those areas. VSS, denied any SOB or difficulty breathing, lungs CTA, pulse ox 98% RA. LOREN Bar, notified and came to room
to assess. Heparin held, Benadryl 25 mg IV given with almost immediate resolution of hives. Heparin turned back on at 2144 per [place], pt. still remains hive free; pulse ox 98% RA. Due for Benadryl 25mg PO at midnight. NSR on the monitor, no
other complaints at this time.
[2023-12-12] VITALS (8 sets, daily range): BP systolic 104–125; BP diastolic 74–83; BMI 28.5
[2023-12-12] MEDS: BENADRYL 25 MG PO (00:13)
[2023-12-12 00:43] LABS: % Basophils 0.6 % (0-2); % Eosinophils 4.4 % (0-6); % Immature Granulocytes 0.2 % (0-0.5); % Lymphocytes 52.8 % (20.5-51.1); % Monocytes 6.5 % (1.7-9.3); % Neutrophils 35.5 % (42.2-75.2); Absolute Basophils 0.1 10^3/uL (0-0.2); Absolute Eosinophils 0.4 10^3/uL (0-0.7); Absolute Lymphocytes 4.5 10^3/uL (1.2-3.4); Absolute Monocytes 0.6 10^3/uL (0.1-0.6); Hematocrit 44.8 % (39.0-52.0); Hemoglobin 15.2 g/dL (13.0-18.0); Mean Corp Hgb Conc. 33.9 g/dL (33.0-37.0); Mean Corpuscular Hgb 29.7 pg (27.0-31.0); Mean Corpuscular Volume 87.7 fL (80.0-94.0); Mean Platelet Volume 9.1 fL (7.4-10.4); Nucleated Red Blood Cells % 0 % (-); Platelet Count 307 10^3/uL (130-400); Red Blood Cell Count 5.11 10^6/uL (4.70-6.10); Red Cell Dist. Width 12.1 % (11.5-14.5); White Blood Cell Count 8.5 10^3/uL (4.8-10.8)
[2023-12-12 00:58] LABS: APTT 93.3 Sec (23.4-35.0)
[2023-12-12 01:16] LABS: ALT (SGPT) 126 U/L (0-50); AST (SGOT) 81 U/L (17-59); Albumin 4.4 g/dl (3.5-5.0); Alkaline Phosphatase 87 U/L (38-126); Blood Urea Nitrogen 26 mg/dl (9-20); Calcium 9.3 mg/dl (8.4-10.2); Carbon Dioxide 23 mmol/L (22-30); Chloride 104 mmol/L (98-107); Estimated Creatinine Clearance 80 ml/min; Glucose 127 mg/dl (70-99); Potassium 4.4 mmol/L (3.5-5.1); Sodium 136 mmol/L (135-145); Total Bilirubin 0.7 mg/dl (0.2-1.3); Total Protein 7.5 g/dl (6.3-8.2); eGFR > 60.00
--- NOTE | 2023-12-12 01:17 | PTCARENOTE ---
Addendum entered by Marlyn Taylor RN 12/12/23 03:21:
Pt. requires site interpreter for all communication (Mandarin speaking). Hive situation assessed with site interpreter's assistance twice so far this shift.
Original Note:
Some hives re-appeared behind pt.'s B/L knees, also complaining of itching on right lateral buttocks with some hives visualized. Alisson Oates notified, ordered IV Benadryl again, but pt. refused it because it burned the last time (given in right
hand; IV patent with good blood return and no signs of infiltration/phlebitis). Dose given PO instead. IV team notified and new #22 INT started in right forearm (in case Benadryl IV needed in future), hand site remains intact with no abnormalities
assessed. No changes to hives at this time.
--- NOTE | 2023-12-12 06:03 | W.PN.CT ---
Today's Communication / Plan
-
-hives noted last night- resolved with Benadryl x2 and Hydrocortisone cream
-he hasn't been getting Lisinopril. Put Lipitor and Toprol on hold until discuss with Cardiology (last dose was 12/10). Currently, on ASA and iv Heparin
-LFTs improving. Cr nl 0.9
-plans for CABG on 12/[address] Stout
Assessment / Plan
-
Assessment:
-Hives on 12/11/23
-Three-vessel coronary artery disease- on ASA and Iv Heparin
-DM II
-Hypertension
-Hyperlipidemia
-Left upper lobe nodule-repeat CAT scan and follow-up bronchoscopy and biopsy if needed
-COPD
-Tobacco abuse
-Mildly elevated LFTs - improving
Discussed patient care with: Nursing and Care Team
Subjective
-
Date of Service: December 12, 2023
Objective Data
-
Lab Results
12/12/23 00:37
12/12/23 00:37
PT 13.9 Sec (11.4-14.6) 12/11/23 03:23
INR 1.09 12/11/23 03:23
APTT 93.3 Sec (23.4-35.0) H 12/12/23 00:37
Vital Signs
Vital Signs
Temp Pulse Resp BP Pulse Ox
98.3 F 56 16 104/74 99
12/12/23 02:39 12/12/23 02:37 12/12/23 02:39 12/12/23 02:37 12/12/23 02:39
CT Intake/Output/Weight
12/11/23 12/11/23 12/12/23
06:59 18:59 06:59
Intake Total 480 / 1220 648 / 648
Balance 480 / 1220 648 / 648
SaO2: 99
Physical Exam
-
General: Awake and AOx3
Cardiovascular: Regular rate & rhythm, No Murmurs and No Rub
Respiratory: Clear
skin hives resolved with Benadryl x2 and Hydrocortisone cream
Data Reviewed
-
Lab Results: Results Reviewed
Medications: Active Meds Reviewed
Chest X-Ray: Report Reviewed and Image Reviewed
ECG: Report Reviewed and Image Reviewed
--- NOTE | 2023-12-12 06:14 | SUR.OPER ---
No hives seen this morning, pt. denies itchiness.
[2023-12-12 08:35] LABS: Glucose - Point of Care 132 mg/dl (70-99)
[2023-12-12] MEDS: HEPARIN 25000 UNITS/250 ML IV (08:36)
[2023-12-12] MEDS: LOW STRENGTH ASPIRIN 81 MG PO (08:39)
[2023-12-12] MEDS: HYDROCORTISONE 1% CREAM 1 APPLIC TOPICAL ×2 (08:39→19:45)
[2023-12-12] MEDS: NOVOLOG FLEXPEN-LOW RESISTANCE SC ×2 (08:40→17:11)
[2023-12-12 11:26] LABS: Glucose - Point of Care 164 mg/dl (70-99)
[2023-12-12] MEDS: NOVOLOG FLEXPEN-LOW RESISTANCE 1 UNITS SC (11:27)
--- NOTE | 2023-12-12 14:03 | W.PN.CD ---
Today's Communication / Plan
-
-CABG planned for 12/16/[address] Stout.
-Continue ASA/heparin gtt.
-Echocardiogram yesterday revealed an LVEF of 55-60% with no significant valve disease.
Impression / Plan
-
Background: 58M with hypertension, dyslipidemia, current smoker, and family history of coronary artery disease transferred from [facility] for CABG evaluation
Credit Card Clerk: Dr. Paige
[facility], presented as [place]
-CABG planned for 12/16/[address] Stout.
-Continue ASA/heparin gtt.
-Continue atorvastatin and metoprolol succinate.
-Holding ACEi for now in anticipation of surgery.
-Echocardiogram yesterday revealed an LVEF of 55-60% with no significant valve disease.
-Continue export documents clerk.
Abnormal chest CT
-Scattered small indeterminate mediastinal lymph nodes, most prominent precarinal and prevascular
-Pulmonary following
NIDDM, Hgba1c 7.5%.
HLD atorvastatin was increased from 20 mg daily to to 40 mg daily.
Current smoker, 1 PPD for nearly 30 years, full cessation recommended
Obesity, BMI 30.4
Physical Exam
Vital Signs/Labs
Vital Signs
Temp Pulse Resp BP Pulse Ox
99.1 F 63 20 122/77 97
12/12/23 11:25 12/12/23 11:28 12/12/23 11:25 12/12/23 11:28 12/12/23 11:25
12/11/23 12/12/23 12/13/23
06:59 06:59 06:59
Actual Weight 77.4 kg 77.7 kg
12/12/23 00:37
12/12/23 00:37
PT 13.9 Sec (11.4-14.6) 12/11/23 03:23
INR 1.09 12/11/23 03:23
APTT 93.3 Sec (23.4-35.0) H 12/12/23 00:37
Magnesium 2.2 mg/dl (1.6-2.3) 12/10/23 05:56
Physical Exam
Constitutional: No acute distress and Comfortable
EENT: Anicteric
Cardiovascular: Rhythm & rate is regular, Pedal edema is absent, Systolic murmur absent and S1S2 is normal
Respiratory: Respiratory effort normal and Lungs clear to auscul.
GI: Soft
Neuro/Psych: AO x 3
Other: Skin (Warm, dry, intact)
Data Reviewed
-
Date of Service: December 12, 2023
EKG: Tracing Personally Visualized and interpreted (Telemetry: Sinus rhythm)
Echo: Report Reviewed by me (12/10/2023: EF 55-60%; no significant valve disease.)
Medical Tests (PFT, Pathology etc): Discussed with Patient
Labs: Labs Reviewed by me
--- NOTE | 2023-12-12 15:07 | PTCARENOTE ---
The patient has been ambulatory in his room all shift. He complained of itching in his right antecubital area this morning. Small red raised bumps were noted and hydrocortisone cream was applied as ordered. His vitals remain stable. NSR/SB has been
noted on the monitor with HRs fluctuating in the 50s and 60s. He has had no complaints of pain. Heparin gtt remains therapeutic at 1400 units/hr.
--- NOTE | 2023-12-12 15:11 | W.PN.HOSP.TC ---
Today's Communication/Plan
-
Continue heparin drip
Continue aspirin
For CABG on 12/15
Assessment / Plan
Assessment / Plan
General: No Apparent Distress, mandrin speaking male sitting in bed comfortably
HEENT: Normocephalic, Atraumatic and Moist Mucous Membranes. No JVD
Respiratory: CTA B/L, No rales or crackles or wheezes.
Cardiac: Regular Rhythm and S1/S2.
GI: Soft, NT, ND, BS+
Musculoskeletal: No Cyanosis , No Edema
Skin: Dry
Neuro: aao x3
Psych: normal affect
PLAN:
Left-sided lung mass, for which I discussed this with pulmonary this morning. Believed to be more inflammatory than mass. Will hold off on bronchoscopy at this time. If CT surgery wants it then they would consider at that time.
Multivessel CAD noted on left heart catheterization at outside hospital. Currently on heparin drip. Brought over for possible CABG evaluation versus high risk PCI depending on what this lung mass is. Suspect if benign likely can proceed if
cancerous will likely require undergoing treatment prior to CABG however would appreciate cardiology's input on this
-CT surgery planning for CABG on Saturday (12/15)
-Change Lipitor to high intensity statin 40 mg at bedtime
-Continue heparin drip and aspirin
Diabetes on metformin 500 mg twice daily at home. Accu-Cheks sliding scale carb controlled diet goal blood glucose 140-180
-Metformin held while inpatient. Provide ssi. CCDiet/low chol diet
Hypertension continue antihypertensives
Hyperlipidemia continue statin
Anticipated Discharge: 24 - 48 hours
Subjective/Interval History
-
Date of Service: December 12, 2023
Seen and examined. No new complaints. No acute overnight events.
Remains on heparin drip. No evidence of active bleeding. Hemoglobin stable.
Objective Data
-
Vital Signs:
Vital Signs
Temp Pulse Resp BP Pulse Ox
98.7 F 63 20 122/77 97
12/12/23 15:03 12/12/23 11:28 12/12/23 15:03 12/12/23 11:28 12/12/23 15:03
I&O
12/11/23 12/12/23 12/13/23
06:59 06:59 06:59
Intake Total 1220 / 1220 648 / 648 360 / 360
Balance 1220 / 1220 648 / 648 360 / 360
[2023-12-12 17:10] LABS: Glucose - Point of Care 124 mg/dl (70-99)
[2023-12-12] MEDS: LIPITOR 40 MG PO (17:48)
[2023-12-12 22:28] LABS: Glucose - Point of Care 127 mg/dl (70-99)
[2023-12-13 02:27] VITALS: BP 116/72
[2023-12-13] MEDS: HEPARIN 25000 UNITS/250 ML IV (02:31)
[2023-12-13 02:32] LABS: Hematocrit 43.8 % (39.0-52.0); Hemoglobin 15.8 g/dL (13.0-18.0); Mean Corp Hgb Conc. 36.1 g/dL (33.0-37.0); Mean Corpuscular Hgb 30.3 pg (27.0-31.0); Mean Corpuscular Volume 83.9 fL (80.0-94.0); Platelet Count 315 10^3/uL (130-400); Red Blood Cell Count 5.22 10^6/uL (4.70-6.10); Red Cell Dist. Width 12.3 % (11.5-14.5); White Blood Cell Count 9.6 10^3/uL (4.8-10.8)
--- NOTE | 2023-12-13 02:37 | PTCARENOTE ---
Pt. had hives on his upper inner thighs at beginning of shift but they went away after hydrocortisone cream was applied. Alisson Oates in room at the time, assessed by her. No other hives at this time. VSS; no complaints of chest pain/discomfort,
NSR-SB on the monitor.
--- NOTE | 2023-12-13 02:41 | W.PN.CT ---
Today's Communication / Plan
-
-no issues overnight
-hives seemed improved with Benadryl
-pt is on ASA, Toprol, Lipitor, Iv Heparin (renewed)
-plans for CABG on 12/[address] Stout
Assessment / Plan
-
Assessment:
-Hives on 12/11/23
-Three-vessel coronary artery disease- on ASA and Iv Heparin
-DM II
-Hypertension
-Hyperlipidemia
-Left upper lobe nodule-repeat CAT scan and follow-up bronchoscopy and biopsy if needed
-COPD
-Tobacco abuse
-Mildly elevated LFTs - improving
Discussed patient care with: Nursing and Care Team
Subjective
-
Date of Service: December 13, 2023
Objective Data
-
PT 13.9 Sec (11.4-14.6) 12/11/23 03:23
INR 1.09 12/11/23 03:23
APTT 93.3 Sec (23.4-35.0) H 12/12/23 00:37
Vital Signs
Vital Signs
Temp Pulse Resp BP Pulse Ox
98.3 F 56 18 119/83 98
12/13/23 02:28 12/12/23 22:30 12/13/23 02:28 12/12/23 22:30 12/13/23 02:28
CT Intake/Output/Weight
12/12/23 12/12/23 12/13/23
06:59 18:59 06:59
Intake Total 648 / 648 360 / 360
Balance 648 / 648 360 / 360
SaO2: 98
Physical Exam
-
General: Awake and AOx3
Cardiovascular: Regular rate & rhythm and No Murmurs
Respiratory: Clear
Extremities: No Edema
Abdomen: soft, nontender, nondistended, no hives on abdomen or back, small rash on R thigh
Data Reviewed
-
Lab Results: Results Reviewed
Medications: Active Meds Reviewed
Chest X-Ray: Report Reviewed and Image Reviewed
ECG: Report Reviewed and Image Reviewed
[2023-12-13 02:50] LABS: APTT 111.8 Sec (23.4-35.0)
[2023-12-13 03:03] LABS: ALT (SGPT) 113 U/L (0-50); AST (SGOT) 58 U/L (17-59); Albumin 4.7 g/dl (3.5-5.0); Alkaline Phosphatase 83 U/L (38-126); Blood Urea Nitrogen 20 mg/dl (9-20); Calcium 9.9 mg/dl (8.4-10.2); Carbon Dioxide 24 mmol/L (22-30); Chloride 101 mmol/L (98-107); Estimated Creatinine Clearance 72 ml/min; Glucose 123 mg/dl (70-99); Potassium 4.6 mmol/L (3.5-5.1); Sodium 137 mmol/L (135-145); Total Bilirubin 0.9 mg/dl (0.2-1.3); Total Protein 7.6 g/dl (6.3-8.2); eGFR > 60.00
[2023-12-13 07:23] VITALS: BP 121/73
[2023-12-13 07:25] LABS: Glucose - Point of Care 126 mg/dl (70-99)
[2023-12-13] MEDS: NOVOLOG FLEXPEN-LOW RESISTANCE SC ×3 (08:12→17:49)
[2023-12-13] MEDS: HYDROCORTISONE 1% CREAM 1 APPLIC TOPICAL ×2 (08:26→20:08)
[2023-12-13] MEDS: LOW STRENGTH ASPIRIN 81 MG PO (08:26)
[2023-12-13] MEDS: TOPROL XL 25 MG PO (08:26)
--- NOTE | 2023-12-13 09:03 | W.PN.CD ---
Today's Communication / Plan
-
continue ASA, heparin gtt, beta cecilia, statin
Impression / Plan
-
Background: 58M with hypertension, dyslipidemia, current smoker, and family history of coronary artery disease transferred from [facility] for CABG evaluation
Funeral Home Director: Dr. Paige
Multivessel CAD: presented as [place]
-CABG planned for 12/16/[address] Stout.
-Continue ASA/heparin gtt.
-monitoring of PTT, Hgb, tele
-Continue atorvastatin and metoprolol succinate.
-Holding ACEi for now in anticipation of surgery.
-Echocardiogram here revealed an LVEF of 55-60% with no significant valve disease.
Abnormal chest CT
-Scattered small indeterminate mediastinal lymph nodes, most prominent precarinal and prevascular
-Pulmonary following
NIDDM, Hgba1c 7.5%.
HLD atorvastatin was increased from 20 mg daily to to 40 mg daily.
Current smoker, 1 PPD for nearly 30 years, full cessation recommended
Obesity, BMI 30.4
Physical Exam
Vital Signs/Labs
Vital Signs
Temp Pulse Resp BP Pulse Ox
98.4 F 54 20 121/73 95
12/13/23 07:21 12/13/23 07:23 12/13/23 07:21 12/13/23 07:23 12/13/23 07:23
12/12/23 12/13/23 12/14/23
06:59 06:59 06:59
Actual Weight 77.7 kg
12/13/23 02:27
12/13/23 02:26
PT 13.9 Sec (11.4-14.6) 12/11/23 03:23
INR 1.09 12/11/23 03:23
APTT 111.8 Sec (23.4-35.0) H 12/13/23 02:26
Magnesium 2.2 mg/dl (1.6-2.3) 12/10/23 05:56
Physical Exam
Constitutional: No acute distress and Comfortable
EENT: Moist mucous membranes
Cardiovascular: Rhythm & rate is regular, Pedal edema is absent, JVD pressure is normal and Systolic murmur absent
Respiratory: Respiratory effort normal and Lungs clear to auscul.
GI: Soft and Distention absent
Neuro/Psych: AO x 3
Data Reviewed
-
Date of Service: December 13, 2023
EKG: Other (Tele: SR/SB 50s-60s)
Labs: Labs Reviewed by me
[2023-12-13 09:32] LABS: APTT 136.1 Sec (23.4-35.0)
[2023-12-13 11:02] VITALS: BMI 28.3
[2023-12-13 11:16] VITALS: BP 113/77
--- NOTE | 2023-12-13 12:20 | W.PN.HOSP.TC ---
Today's Communication/Plan
-
Continue to follow PTT. Continue heparin drip, follow heparin protocol
For CABG on 12/15
Assessment / Plan
Assessment / Plan
General: No Apparent Distress, mandrin speaking male sitting in bed comfortably
HEENT: Normocephalic, Atraumatic and Moist Mucous Membranes. No JVD
Respiratory: CTA B/L, No rales or crackles or wheezes.
Cardiac: Regular Rhythm and S1/S2.
GI: Soft, NT, ND, BS+
Musculoskeletal: No Cyanosis , No Edema
Skin: Dry
Neuro: aao x3
Psych: normal affect
PLAN:
Left-sided lung mass, for which I discussed this with pulmonary this morning. Believed to be more inflammatory than mass. Will hold off on bronchoscopy at this time. If CT surgery wants it then they would consider at that time.
Multivessel CAD noted on left heart catheterization at outside hospital. Currently on heparin drip. Brought over for possible CABG evaluation versus high risk PCI depending on what this lung mass is. Suspect if benign likely can proceed if
cancerous will likely require undergoing treatment prior to CABG however would appreciate cardiology's input on this
-CT surgery planning for CABG on Saturday (12/15)
-Change Lipitor to high intensity statin 40 mg at bedtime
-Continue heparin drip and aspirin
Diabetes on metformin 500 mg twice daily at home. Accu-Cheks sliding scale carb controlled diet goal blood glucose 140-180
-Metformin held while inpatient. Provide ssi. CCDiet/low chol diet
Hypertension continue antihypertensives
Hyperlipidemia continue statin
Anticipated Discharge: > 48 hours
Subjective/Interval History
-
Date of Service: December 13, 2023
Seen and examined. No new complaints. No acute overnight events.
Heparin held due to high PTT
Objective Data
-
Labs:
Laboratory Results
12/13/23 12/13/23 12/13/23
02:26 02:27 09:05
WBC 9.6
Hgb 15.8
Hct 43.8
Plt Count 315
APTT 111.8 H 136.1 H
Sodium 137
Potassium 4.6
Chloride 101
Carbon Dioxide 24
BUN 20
Creatinine 1.0
Glucose 123 H
Calcium 9.9
Total Bilirubin 0.9
AST 58
ALT 113 H
Alkaline Phosphatase 83
12/13/23
17:00
WBC
Hgb
Hct
Plt Count
APTT Pending
Sodium
Potassium
Chloride
Carbon Dioxide
BUN
Creatinine
Glucose
Calcium
Total Bilirubin
AST
ALT
Alkaline Phosphatase
Vital Signs:
Vital Signs
Temp Pulse Resp BP Pulse Ox
99 F 62 20 121/73 98
12/13/23 11:14 12/13/23 10:00 12/13/23 11:14 12/13/23 07:23 12/13/23 11:14
I&O
12/12/23 12/13/23 12/14/23
06:59 06:59 06:59
Intake Total 648 / 648 840 / 840
Balance 648 / 648 840 / 840
[2023-12-13 13:09] LABS: Glucose - Point of Care 136 mg/dl (70-99)
[2023-12-13 15:18] VITALS: BP 121/75
[2023-12-13 17:45] LABS: Glucose - Point of Care 124 mg/dl (70-99)
[2023-12-13] MEDS: LIPITOR 40 MG PO (18:07)
[2023-12-13 19:08] VITALS: BP 132/80
[2023-12-13 21:40] LABS: Glucose - Point of Care 109 mg/dl (70-99)
[2023-12-13 21:55] VITALS: BP 124/78
[2023-12-14] MEDS: HEPARIN 25000 UNITS/250 ML IV ×2 (00:36→20:15)
[2023-12-14 00:52] LABS: APTT 116.1 Sec (23.4-35.0)
--- NOTE | 2023-12-14 01:31 | PTCARENOTE ---
No complaints overnight. SB HR in the 50's. Heparin infusing at 12cc/hr. Left arm limb restriction, band present. Call white in reach
--- NOTE | 2023-12-14 03:59 | W.PN.CT ---
Today's Communication / Plan
-
-No issues overnight. Denies CP/SOB
-Cont. current meds (ASA, Toprol, Lipitor, Iv Heparin)
-Ongoing preop workup
-Will d/c heparin gtt airborne mission systems superintendent to OR
-LUE limb alert, for possible Left Radial artery conduit
-For CABG by Dr. Stout on Friday 12/15
Assessment / Plan
-
Assessment:
-High risk PCI transfer from [facility] on 12/09/23
-Three-vessel coronary artery disease- on ASA and Iv Heparin
-[place]
-Recent hives, 12/11/23
-Hypertension
-Hyperlipidemia
-Class 1 obesity (BMI 30)
-Left upper lobe nodule (improved and cleared for surgery by Pulm)
-COPD
-Active tobacco abuse (1 pk/day x 30 yrs)
-Mildly elevated LFTs - improving
-S/P Cholecystectomy, 2022
-S/P umbilical hernia repair, 06/2022
Discussed patient care with: Cardiology, Nursing, Respiratory Therapy, Pharmacy and Care Team
Subjective
-
Date of Service: December 14, 2023
No issues overnight, denies CP/SOB
Objective Data
-
Lab Results
12/13/23 02:27
12/13/23 02:26
PT 13.9 Sec (11.4-14.6) 12/11/23 03:23
INR 1.09 12/11/23 03:23
APTT 116.1 Sec (23.4-35.0) H 12/14/23 00:33
Vital Signs
Vital Signs
Temp Pulse Resp BP Pulse Ox
98.5 F 55 18 124/78 96
12/13/23 22:29 12/14/23 00:00 12/13/23 22:29 12/13/23 21:55 12/13/23 22:29
CT Intake/Output/Weight
12/13/23 12/13/23 12/14/23
06:59 18:59 06:59
Intake Total 480 / 840
Balance 480 / 840
SaO2: 96 (RA)
Physical Exam
-
General: Awake, Oriented and AOx3
Cardiovascular: Regular rate & rhythm (sinus bradycardia ) and No Murmurs
Respiratory: Clear
Extremities: No Edema
Data Reviewed
-
Lab Results: Results Reviewed
Medications: Active Meds Reviewed
Chest X-Ray: Report Reviewed and Image Reviewed
ECG: Report Reviewed and Image Reviewed
[2023-12-14 04:21] VITALS: BP 135/78
[2023-12-14 07:06] VITALS: BP 110/74
[2023-12-14 07:07] VITALS: BMI 28.1
[2023-12-14 07:13] LABS: Glucose - Point of Care 125 mg/dl (70-99)
[2023-12-14] MEDS: NOVOLOG FLEXPEN-LOW RESISTANCE SC ×3 (07:19→18:08)
--- NOTE | 2023-12-14 08:31 | W.PN.CD ---
Today's Communication / Plan
-
IV heparin
In-house CABG as planned
Impression / Plan
-
Background: 58M with hypertension, dyslipidemia, current smoker, and family history of coronary artery disease transferred from [facility] for CABG evaluation
Last Remodeler Repairer: Dr. Paige
Multivessel CAD: presented as [place]
-CABG planned for 12/16/[address] Stout.
-Continue ASA/heparin gtt.
-monitoring of PTT, Hgb, tele
-Continue atorvastatin and metoprolol succinate.
-Holding ACEi for now in anticipation of surgery.
Abnormal chest CT
-Scattered small indeterminate mediastinal lymph nodes, most prominent precarinal and prevascular
-Pulmonary following
NIDDM, Hgba1c 7.5%.
HLD atorvastatin was increased from 20 mg daily to to 40 mg daily.
Current smoker, 1 PPD for nearly 30 years, full cessation recommended
Obesity, BMI 30.4
Subjective/Interval Hx:
Quiet night. Tele normal
Data:
Echo 12/2023 LVEF of 55-60% with no significant valve disease.
Physical Exam
Vital Signs/Labs
Vital Signs
Temp Pulse Resp BP Pulse Ox
97.6 F 55 18 135/78 96
12/14/23 07:07 12/14/23 04:21 12/14/23 07:07 12/14/23 04:21 12/14/23 07:07
12/13/23 12/14/23 12/15/23
06:59 06:59 06:59
Actual Weight 77.7 kg 77.2 kg 76.7 kg
12/13/23 02:27
12/13/23 02:26
PT 13.9 Sec (11.4-14.6) 12/11/23 03:23
INR 1.09 12/11/23 03:23
APTT 116.1 Sec (23.4-35.0) H 12/14/23 00:33
Magnesium 2.2 mg/dl (1.6-2.3) 12/10/23 05:56
Physical Exam
Constitutional: No acute distress
EENT: Anicteric
Cardiovascular: Rhythm & rate is regular and Pedal edema is absent
Respiratory: Respiratory effort normal and Lungs clear to auscul.
GI: Soft and Distention absent
Neuro/Psych: Alert
Data Reviewed
-
Date of Service: December 14, 2023
[2023-12-14] MEDS: TOPROL XL 25 MG PO (08:44)
[2023-12-14] MEDS: HYDROCORTISONE 1% CREAM TOPICAL ×3 (08:45→20:22)
[2023-12-14] MEDS: LOW STRENGTH ASPIRIN 81 MG PO (08:45)
[2023-12-14 08:55] LABS: APTT 69.9 Sec (23.4-35.0)
--- NOTE | 2023-12-14 10:24 | PTCARENOTE ---
No hives or rash noted on Pt, Pt denies rash now.
[2023-12-14 11:12] VITALS: BP 111/77
[2023-12-14 11:17] LABS: Glucose - Point of Care 133 mg/dl (70-99)
--- NOTE | 2023-12-14 13:23 | W.PN.HOSP.TC ---
Today's Communication/Plan
-
continue hep gtt
npo start 12/15 at 0001 for CABG
Assessment / Plan
Assessment / Plan
General: No Apparent Distress, mandrin speaking male sitting in bed comfortably
HEENT: Normocephalic, Atraumatic and Moist Mucous Membranes. No JVD
Respiratory: CTA B/L, No rales or crackles or wheezes.
Cardiac: Regular Rhythm and S1/S2.
GI: Soft, NT, ND, BS+
Musculoskeletal: No Cyanosis , No Edema
Skin: Dry
Neuro: aao x3
Psych: normal affect
PLAN:
Left-sided lung mass, for which I discussed this with pulmonary this morning. Believed to be more inflammatory than mass. Will hold off on bronchoscopy at this time. If CT surgery wants it then they would consider at that time.
Multivessel CAD noted on left heart catheterization at outside hospital. Currently on heparin drip. Brought over for possible CABG evaluation versus high risk PCI depending on what this lung mass is. Suspect if benign likely can proceed if
cancerous will likely require undergoing treatment prior to CABG however would appreciate cardiology's input on this
-CT surgery planning for CABG on Saturday (12/15)
-Change Lipitor to high intensity statin 40 mg at bedtime
-Continue heparin drip and aspirin
Diabetes on metformin 500 mg twice daily at home. Accu-Cheks sliding scale carb controlled diet goal blood glucose 140-180
-Metformin held while inpatient. Provide ssi. CCDiet/low chol diet
Hypertension continue antihypertensives
Hyperlipidemia continue statin
Anticipated Discharge: > 48 hours
Subjective/Interval History
-
Date of Service: December 14, 2023
seen and examined
no new complaints
no acute overnight events
Objective Data
-
Labs:
Laboratory Results
12/14/23 12/14/23 12/14/23
00:33 08:02 15:00
APTT 116.1 H 69.9 H Pending
Vital Signs:
Vital Signs
Temp Pulse Resp BP Pulse Ox
98.6 F 58 18 110/74 95
12/14/23 11:12 12/14/23 10:00 12/14/23 11:12 12/14/23 08:44 12/14/23 11:12
I&O
12/13/23 12/14/23 12/15/23
06:59 06:59 06:59
Intake Total 840 / 840 376 / 376
Balance 840 / 840 376 / 376
[2023-12-14 15:43] VITALS: BP 120/86
[2023-12-14 17:38] LABS: APTT 75.5 Sec (23.4-35.0)
[2023-12-14 18:06] LABS: Glucose - Point of Care 110 mg/dl (70-99)
[2023-12-14] MEDS: LIPITOR 40 MG PO (18:07)
[2023-12-14 20:06] VITALS: BP 106/70
[2023-12-14 21:25] LABS: Glucose - Point of Care 192 mg/dl (70-99)
[2023-12-14 22:33] VITALS: BP 100/76
--- NOTE | 2023-12-14 22:43 | PTCARENOTE ---
Patient walking in room. Heparin infusing @ 12cc/hr. PTT collected. Denies pain, SR/SB on telemetry. LUE limb restriction, pink band in place, lights dimmed call white in reach
[2023-12-14 22:56] LABS: APTT 95.9 Sec (23.4-35.0)
[2023-12-15] VITALS (8 sets, daily range): BP systolic 106–117; BP diastolic 64–81; BMI 28.4
--- NOTE | 2023-12-15 05:08 | W.PN.CT ---
Today's Communication / Plan
-
-No issues overnight. Denies CP/SOB
-Cont. current meds (ASA, Toprol XL, Lipitor, Heparin gtt)
-Avoid SHALOM-I/ARBs 48 hrs prior to surgery
-Will d/c heparin gtt air traffic control equipment repairer to OR
-Ongoing preop workup
-LUE limb alert, for possible Left Radial artery conduit
-For CABG by Dr. Stout tomorrow 12/15
Assessment / Plan
-
Assessment:
-High risk PCI transfer from [facility] on 12/09/23
-Three-vessel coronary artery disease- on ASA and Iv Heparin
-[place]
-Recent hives, 12/11/23
-Hypertension
-Hyperlipidemia
-Class 1 obesity (BMI 30)
-Left upper lobe nodule (improved and cleared for surgery by Pulm)
-COPD
-Active tobacco abuse (1 pk/day x 30 yrs)
-Mildly elevated LFTs - improving
-S/P Cholecystectomy, 2022
-S/P umbilical hernia repair, 06/2022
Discussed patient care with: Cardiology, Nursing, Respiratory Therapy, Pharmacy and Care Team
Subjective
-
Date of Service: December 15, 2023
No major issues overnight. Denies CP/SOB
Objective Data
-
Lab Results
12/13/23 02:26
PT 13.9 Sec (11.4-14.6) 12/11/23 03:23
INR 1.09 12/11/23 03:23
APTT 95.9 Sec (23.4-35.0) H 12/14/23 22:31
Vital Signs
Vital Signs
Temp Pulse Resp BP Pulse Ox
97.9 F 55 18 100/76 96
12/15/23 04:49 12/15/23 04:00 12/15/23 04:49 12/14/23 22:33 12/15/23 04:49
CT Intake/Output/Weight
12/14/23 12/14/23 12/15/23
06:59 18:59 06:59
Intake Total 376 / 376 100 / 100
Balance 376 / 376 100 / 100
SaO2: 96 (RA)
Physical Exam
-
General: Awake, Oriented and AOx3
Cardiovascular: Regular rate & rhythm (sinus bradycardia @ 52 bpm)
Respiratory: Clear
Sternum: Stable
Extremities: No Edema
Data Reviewed
-
Lab Results: Results Reviewed
Medications: Active Meds Reviewed
Chest X-Ray: Report Reviewed and Image Reviewed
ECG: Report Reviewed and Image Reviewed
[2023-12-15 05:28] LABS: Hematocrit 43.1 % (39.0-52.0); Mean Corp Hgb Conc. 34.8 g/dL (33.0-37.0); Mean Corpuscular Hgb 29.9 pg (27.0-31.0); Mean Platelet Volume 9.2 fL (7.4-10.4); Platelet Count 322 10^3/uL (130-400); Red Blood Cell Count 5.01 10^6/uL (4.70-6.10); Red Cell Dist. Width 12.3 % (11.5-14.5); White Blood Cell Count 8.6 10^3/uL (4.8-10.8)
[2023-12-15 05:38] LABS: APTT 109.1 Sec (23.4-35.0)
[2023-12-15 07:30] LABS: Glucose - Point of Care 130 mg/dl (70-99)
[2023-12-15] MEDS: NOVOLOG FLEXPEN-LOW RESISTANCE SC ×3 (07:52→18:03)
[2023-12-15] MEDS: TOPROL XL 25 MG PO (08:32)
[2023-12-15] MEDS: HYDROCORTISONE 1% CREAM TOPICAL ×2 (08:35→21:01)
[2023-12-15 10:12] LABS: Urine Albumin 1+ (Neg - Trace); Urine Bilirubin 1+ (Negative); Urine Character Slightly Cloudy (Clear); Urine Color Amber; Urine Glucose Negative (Negative); Urine Ketone Trace (Negative); Urine Leukocyte Trace (Negative); Urine Nitrite Positive (Negative); Urine Occult Blood 4+ (Negative); Urine Specific Gravity 1.015 (<1.030); Urine Urobilinogen Negative (Neg - 1+)
[2023-12-15 10:34] LABS: Urine Bacteria Few (Negative); Urine Red Blood Cell 70-80 /HPF (0-2); Urine Squamous Cell 0-2 /LPF (Few)
[2023-12-15] MEDS: LOW STRENGTH ASPIRIN 81 MG PO (10:56)
[2023-12-15] MEDS: STERILE WATER FOR INJECTION 10 ML IV ×2 (11:20→21:10)
[2023-12-15] MEDS: ROCEPHIN 1000 MG IV ×2 (11:20→21:10)
[2023-12-15] MEDS: HEPARIN 25000 UNITS/250 ML IV (11:42)
[2023-12-15 12:22] LABS: Glucose - Point of Care 112 mg/dl (70-99)
--- NOTE | 2023-12-15 12:23 | CON.MD ---
Consultation - Medical
-
see dictated note
hx gathered from chart and thru interpretation line as pt does not speak cameroonian
denies prior gu hx or surgery
denies any urinary difficulty or hematuria/UTI
admitted from [facility] for eval of lung mass and for CABG
on heparin drip
developed GPH in last 24hrs
ua +- cx has been sent- given rocephin- but he denies dysuria
had noncontrasted CT as part of admit eval- no gross gu abnl- ? bladder thickening
spoke with cardiac team
send ucx
stop heparin drip now
if urine clears by this evening- can perform bedside cysto with hopes of proceeding with cabg tomorrow as scheduled if no sig pathology found understanding that this could cause a problem if post op anticoagulation is needed
if pathology found (ie bladder tumor)- then would prob need to discuss taking care of that before cabg
will follow
[2023-12-15] MEDS: FLOMAX 0.4 MG PO (12:55)
--- NOTE | 2023-12-15 14:14 | W.PN.HOSP.TC ---
Today's Communication/Plan
-
Keep n.p.o. after midnight
Continue heparin drip
Continue to follow heparin protocol
every [address] surgery recommendation
Assessment / Plan
Assessment / Plan
General: No Apparent Distress, mandrin speaking male sitting in bed comfortably
HEENT: Normocephalic, Atraumatic and Moist Mucous Membranes. No JVD
Respiratory: CTA B/L, No rales or crackles or wheezes.
Cardiac: Regular Rhythm and S1/S2.
GI: Soft, NT, ND, BS+
Musculoskeletal: No Cyanosis , No Edema
Skin: Dry
Neuro: aao x3
Psych: normal affect
PLAN:
Left-sided lung mass, for which I discussed this with pulmonary this morning. Believed to be more inflammatory than mass. Will hold off on bronchoscopy at this time. If CT surgery wants it then they would consider at that time.
Multivessel CAD noted on left heart catheterization at outside hospital. Currently on heparin drip. Brought over for possible CABG evaluation versus high risk PCI depending on what this lung mass is. Suspect if benign likely can proceed if
cancerous will likely require undergoing treatment prior to CABG however would appreciate cardiology's input on this
-CT surgery planning for CABG on Saturday (12/15)
-Change Lipitor to high intensity statin 40 mg at bedtime
-Continue heparin drip and aspirin
Diabetes on metformin 500 mg twice daily at home. Accu-Cheks sliding scale carb controlled diet goal blood glucose 140-180
-Metformin held while inpatient. Provide ssi. CCDiet/low chol diet
Hypertension continue antihypertensives
Hyperlipidemia continue statin
Anticipated Discharge: 24 - 48 hours
Subjective/Interval History
-
Date of Service: December 15, 2023
Seen and examined. No new complaints. No acute overnight event or
Objective Data
-
Labs:
Laboratory Results
12/15/23
05:04
WBC 8.6
Hgb 15.0
Hct 43.1
Plt Count 322
APTT 109.1 H
Vital Signs:
Vital Signs
Temp Pulse Resp BP Pulse Ox
98.2 F 48 20 113/81 95
12/15/23 11:12 12/15/23 12:00 12/15/23 11:12 12/15/23 11:14 12/15/23 11:12
I&O
12/14/23 12/15/23 12/16/23
06:59 06:59 06:59
Intake Total 376 / 376 244 / 244
Balance 376 / 376 244 / 244
--- NOTE | 2023-12-15 14:53 | PTCARENOTE ---
Pt c/o having blood in his urine this morning. Pt encouraged to use urinal and save urine. He voided 150ml dk guerline, blood tinged urine. PA automotive collision repair instructor, Tj, notified. UA sent, reflex to culture. Urologist consulted by PA. Dr Kellogg came to see Pt.
Heparin D/C'd, PO fluids encouraged. Flomax ordered and given. Pt recently voided 300 ml clear yellow urine.
--- NOTE | 2023-12-15 14:56 | W.PN.CD ---
Today's Communication / Plan
-
IV heparin can be stopped given hematuria
In-house CABG is planned
Impression / Plan
-
Background: 58M with hypertension, dyslipidemia, current smoker, and family history of coronary artery disease transferred from [facility] for CABG evaluation
Derrickman Helper: Dr. Paige
Multivessel CAD: presented as [place]
-CABG planned for 12/16/[address] Stout.
-Continue ASA/heparin gtt.
-monitoring of PTT, Hgb, tele
-Continue atorvastatin and metoprolol succinate.
-Holding ACEi for now in anticipation of surgery.
New hematuria
- OK to stop heparin
- Urology getting involved
Abnormal chest CT
-Scattered small indeterminate mediastinal lymph nodes, most prominent precarinal and prevascular
-Pulmonary following
NIDDM, Hgba1c 7.5%.
HLD atorvastatin was increased from 20 mg daily to to 40 mg daily.
Current smoker, 1 PPD for nearly 30 years, full cessation recommended
Obesity, BMI 30.4
Subjective/Interval Hx:
Quiet night from cardiac perspective. Tele normal. Family served as automobile body repair chief: no angina. New hematuria
Data:
Echo 12/2023 LVEF of 55-60% with no significant valve disease.
Physical Exam
Vital Signs/Labs
Vital Signs
Temp Pulse Resp BP Pulse Ox
98.1 F 74 20 106/64 95
12/15/23 14:50 12/15/23 14:52 12/15/23 14:50 12/15/23 14:52 12/15/23 14:50
12/14/23 12/15/23 12/16/23
06:59 06:59 06:59
Actual Weight 77.2 kg 76.7 kg
12/15/23 05:04
12/13/23 02:26
PT 13.9 Sec (11.4-14.6) 12/11/23 03:23
INR 1.09 12/11/23 03:23
APTT 109.1 Sec (23.4-35.0) H 12/15/23 05:04
Magnesium 2.2 mg/dl (1.6-2.3) 12/10/23 05:56
Physical Exam
Constitutional: No acute distress
Cardiovascular: Rhythm & rate is regular and Pedal edema is absent
Respiratory: Respiratory effort normal and Lungs clear to auscul.
GI: Soft and Distention absent
Neuro/Psych: Alert
Data Reviewed
-
Date of Service: December 15, 2023
--- NOTE | 2023-12-15 15:59 | PTCARENOTE ---
Pt has voided x3 for a total of 925 ml clear yellow urine since heparin drip was turned off.
[2023-12-15] MEDS: LIDOCAINE URO-JET 2% 1 SYRINGE TOPICAL (17:01)
--- NOTE | 2023-12-15 17:16 | W.IMMPOSTOP ---
Surgical Immed Post Op Note
-
Primary Surgeon:
evan
Assisting Surgeon:
Pre-op Diagnosis:
hematuria
Post-op Diagnosis:
same
Procedure Performed:
bedside cysto
Anesthesia Type:
local
Specimen / Cultures:
Estimated Blood Loss:
1cc
Complications:
none
Operative Findings:
nl urethra
minimal lateral lobe prostate hypertrophy
tiny old clot in bladder- but no tumor or mass- could see clear urine coming from each UO
still uncertain to hematuria source- but no obvious tumor or mass
cleared for CABG tomorrow- will place 3 way foss intra op in case hematuria re-develops with restart of anticoagulation
[2023-12-15 17:30] LABS: Glucose - Point of Care 107 mg/dl (70-99)
[2023-12-15] MEDS: LIPITOR 40 MG PO (18:03)
--- NOTE | 2023-12-15 18:24 | PTCARENOTE ---
Pt had bedside cystoscopy by Dr Kellogg this evening, dave well, voided after procedure. He denies pain at this time.
[2023-12-15 21:25] LABS: Glucose - Point of Care 153 mg/dl (70-99)
--- NOTE | 2023-12-15 21:34 | PTCARENOTE ---
Pt was clipped and showered w/ CHG soap. POC reviewed w/ sister and pt. Pt currently has no complaints. Rocephin administered as ordered per Andres Perez for UTI. Currently in bed; call cindy w/in reach.
[2023-12-16] VITALS (14 sets, daily range): BP systolic 100–112; BP diastolic 69–93; PULSE 80; BMI 28.3
[2023-12-16 05:42] LABS: Glucose - Point of Care 138 mg/dl (70-99)
[2023-12-16] MEDS: PROTONIX 40 MG PO (05:48)
[2023-12-16] MEDS: LOPRESSOR 12.5 MG PO (05:48)
[2023-12-16] MEDS: MAGNESIUM OXIDE 500 MG PO (05:48)
[2023-12-16] MEDS: BACTROBAN 2% OINTMENT 1 APPLIC NASAL ×2 (05:48→19:59)
--- NOTE | 2023-12-16 06:12 | PTCARENOTE ---
Pt reports sleeping well t/o night. Pt showered this AM w/ CHG soap. B/l BPs obtained. Accu-check 138.
--- NOTE | 2023-12-16 08:09 | W.PN.UPDATE ---
Update Note
Progress Note Update
pt seen in OR
3 way foss placed without difficulty- urine clear
may begin cbi prn for hematuria
continue antibx and f/u urine culture
continue flomax when pt taking po's
will follow
[2023-12-16 08:36] LABS: ACT+ - POC 93 Seconds (82-134)
[2023-12-16 08:46] LABS: B.E. - POC -2.4 mmol/L; Glucose - POC 136 mg/dl (65-99); HCO3 - POC 23 mmol/L (21-29); Hematocrit - POC 43 % PCV (42-52); Hemodilution- POC No; Hemoglobin Calculated - POC 14.7; Ionized Calcium - POC 1.19 mmol/L (1.12-1.27); O2 Saturation %Calculated-POC 99.2 5 (92-96); PCO2 - POC 40 mmHg (35-45); PO2 - POC 149 mmHg (80-100); POC Comment PRE; Potassium - POC 4.1 mmol/L (3.6-5.0); Sodium - POC 141 mmol/L (135-145); pH - POC 7.37 (7.35-7.45)
--- NOTE | 2023-12-16 09:06 | CM ---
Patient in OR today for CABG.
Reviewed initial assessment. Pt. resides with sister in a private, 1 story home w/ 2 VICENTE. Pt. was functionally indep. at baseline w/ ADLs, mobility.
Anticipated DC plan is for home w/ CT Transitional Care RN.
CM to follow.
[2023-12-16 10:49] LABS: ACT+ - POC 895 Seconds (82-134)
[2023-12-16 11:14] LABS: B.E. - POC -2.2 mmol/L; Glucose - POC 221 mg/dl (65-99); HCO3 - POC 24 mmol/L (21-29); Hematocrit - POC 30 % PCV (42-52); Hemodilution- POC Yes; Hemoglobin Calculated - POC 10.3; Ionized Calcium - POC 0.96 mmol/L (1.12-1.27); O2 Saturation %Calculated-POC 99.8 5 (92-96); PCO2 - POC 45 mmHg (35-45); PO2 - POC 235 mmHg (80-100); POC Comment CPB; Potassium - POC 6.7 mmol/L (3.6-5.0); Sodium - POC 135 mmol/L (135-145); pH - POC 7.33 (7.35-7.45)
[2023-12-16 11:20] LABS: ACT+ - POC 597 Seconds (82-134)
[2023-12-16 11:34] LABS: ACT+ - POC 507 Seconds (82-134)
[2023-12-16 11:45] LABS: B.E. - POC -3.8 mmol/L; Glucose - POC 235 mg/dl (65-99); HCO3 - POC 22 mmol/L (21-29); Hematocrit - POC 34 % PCV (42-52); Hemodilution- POC Yes; Hemoglobin Calculated - POC 11.7; Ionized Calcium - POC 1.02 mmol/L (1.12-1.27); O2 Saturation %Calculated-POC 99.8 5 (92-96); PCO2 - POC 41 mmHg (35-45); PO2 - POC 233 mmHg (80-100); POC Comment CPB; Potassium - POC 5.3 mmol/L (3.6-5.0); Sodium - POC 138 mmol/L (135-145); pH - POC 7.33 (7.35-7.45)
[2023-12-16 12:16] LABS: B.E. - POC 0.5 mmol/L; Glucose - POC 208 mg/dl (65-99); HCO3 - POC 26 mmol/L (21-29); Hematocrit - POC 33 % PCV (42-52); Hemodilution- POC Yes; Hemoglobin Calculated - POC 11.1; Ionized Calcium - POC 1.01 mmol/L (1.12-1.27); O2 Saturation %Calculated-POC 99.9 5 (92-96); PCO2 - POC 42 mmHg (35-45); PO2 - POC 353 mmHg (80-100); POC Comment CPB; Potassium - POC 4.5 mmol/L (3.6-5.0); Sodium - POC 142 mmol/L (135-145)
--- NOTE | 2023-12-16 12:19 | W.PN.CD ---
Today's Communication / Plan
-
CABG today.
Impression / Plan
-
Impression/Plan: 58M with hypertension, dyslipidemia, current smoker, and family history of coronary artery disease transferred from [facility] for CABG.
#Multivessel CAD
-Presented as [place].
-Continue ASA.
-Continue atorvastatin and metoprolol succinate.
-Holding ACEi for now in anticipation of surgery.
-CABG today.
#New hematuria
-Urology consulted, input appreciated.
-Brandt catheter management per urology.
#Abnormal chest CT
-Scattered small indeterminate mediastinal lymph nodes, most prominent precarinal and prevascular.
-Pulmonary following.
#NIDDM
-Chronic, stable.
-HbA1c = 7.5%.
#HLD
-Chronic, stable.
-atorvastatin was increased from 20 mg daily to to 40 mg daily.
-Goal LDL < 55.
#Current smoker
-1 PPD for nearly 30 years.
-Cessation recommended.
#Obesity
-BMI 30.4
-He will benefit from GLP-1 analog.
Director Of District Office: Dr. Paige
Subjective/Interval Hx:
CABG today.
Data:
CT Abdomen/Pelvis, 12/10/2023:
IMPRESSION:
Thoracic aorta normal in caliber with some calcific atherosclerotic changes of the thoracic aortic arch.
Abdominal aorta within the limits of normal in caliber with calcific atherosclerotic changes.
Overall limited evaluation without intravenous contrast.
Scattered small indeterminate mediastinal lymph nodes, most prominent precarinal and prevascular.
Prior cholecystectomy.
Colonic diverticulosis.
TTE, 12/10/2023:
CONCLUSIONS
Normal biventricular size and systolic function without regional wall motion
abnormality. Estimated LVEF 55-60%.
No significant valve disease.
No prior study available for comparison.
Physical Exam
Vital Signs/Labs
Vital Signs
Temp Pulse Resp BP Pulse Ox
36.8 C 57 16 105/84 98
12/16/23 05:33 12/16/23 06:00 12/16/23 05:33 12/16/23 05:34 12/16/23 05:33
12/15/23 12/16/23 12/17/23
11:59 11:59 11:59
Actual Weight 77.3 kg 77.2 kg
12/16/23 07:33
12/16/23 07:33
PT Cancelled 12/16/23 07:33
INR Cancelled 12/16/23 07:33
APTT Cancelled 12/16/23 06:00
Magnesium 2.2 mg/dl (1.6-2.3) 12/10/23 05:56
Physical Exam
Deferred.
Data Reviewed
-
Date of Service: December 16, 2023
Medical Decision Making: Reviewed Test Results, Test Interpretation and Review of Case with other Provider
EKG: Tracing Personally Visualized and interpreted and Report Reviewed by me
Echo: Report Reviewed by me
X-Ray/CT/US/MRI/NUC/PET: Image Personally Visualized and interpreted and Report Reviewed by me
Medical Tests (PFT, Pathology etc): Image Personally Visualized and interpreted and Report Reviewed by me
Labs: Labs Reviewed by me
Old Records: Reviewed
[2023-12-16 12:21] LABS: ACT+ - POC 580 Seconds (82-134)
[2023-12-16 12:50] LABS: B.E. - POC -0.6 mmol/L; Glucose - POC 188 mg/dl (65-99); HCO3 - POC 24 mmol/L (21-29); Hematocrit - POC 34 % PCV (42-52); Hemodilution- POC Yes; Hemoglobin Calculated - POC 11.7; Ionized Calcium - POC 1.01 mmol/L (1.12-1.27); O2 Saturation %Calculated-POC 99.9 5 (92-96); PCO2 - POC 37 mmHg (35-45); PO2 - POC 272 mmHg (80-100); POC Comment CPB; Potassium - POC 4.4 mmol/L (3.6-5.0); Sodium - POC 142 mmol/L (135-145); pH - POC 7.41 (7.35-7.45)
[2023-12-16 12:58] LABS: ACT+ - POC 514 Seconds (82-134)
[2023-12-16 13:33] LABS: ACT+ - POC 93 Seconds (82-134)
[2023-12-16 13:42] LABS: Glucose - POC 164 mg/dl (65-99); HCO3 - POC 21 mmol/L (21-29); Hematocrit - POC 34 % PCV (42-52); Hemodilution- POC Yes; Hemoglobin Calculated - POC 11.4; Ionized Calcium - POC 1.39 mmol/L (1.12-1.27); O2 Saturation %Calculated-POC 97.7 5 (92-96); PCO2 - POC 43 mmHg (35-45); PO2 - POC 110 mmHg (80-100); POC Comment POST; Potassium - POC 3.5 mmol/L (3.6-5.0); Sodium - POC 143 mmol/L (135-145)
--- NOTE | 2023-12-16 14:00 | W.CVOR.SURPR ---
CVOR Surgeon Immed Pre Op
-
I have examined this patient prior to performance of the scheduled procedure.
The patient's condition is unchanged from the time of the dictated/written History and
Physical and the patient is able to undergo the scheduled procedure.
--- NOTE | 2023-12-16 14:00 | W.IMMPOSTOP ---
Addendum entered and electronically signed by Titi Stout MD 12/16/23 14:53:
[id number]
Original Note:
Surgical Immed Post Op Note
-
CARDIAC SURGERY OPERATIVE NOTE:
Preoperative Dx:
MVCAD
Hematuria which on heparin gtt
Postoperative Dx:
Same
Procedures:
1) Urology placed 3-way foss catheter
2) Median sternotomy
3) Takedown of NORBERTO (narrowed pedicle)
4) Endoscopic harvest/prep of LEFT RA
5) Endoscopic harvest/prep of RLE GSV
6) CABG x 4 (NORBERTO to LAD, L RA to OM, GSV to RI, GSV to PDA)
Surgeon:
Titi Stout M.D.
Assistants:
Han VenturaAChaparrita; endoscopic harvest/prep of L RA; assistant finance director throughout; closure
Tiffanie Werner P.A.-C.; endoscopic harvest/prep of RLE GSV; closure
Anesthesia:
Arsenio Forde C.R.N.A. and Ochoa Gonzales M.D.
Perfusion:
Yenifer FowlerPStephanie; XC 90min, CPB: 140min
Findings:
NORBERTO was healthy vessel w/ ELD 2.5mm, very brisk blood flow; thin carmona
L RA was healthy vessel w/ ELD 3.5mm
RLE GSV was healthy vessel w/ ELD 3.5-4.0mm
LAD was visible on the epicardial surface, normal carmona at distal midpoint anastomosis, ELD 3.0mm (anastomosis performed over 1.5 shunt to improve visualization)
RI was visible on the epicardial surface, scattered calcifications, ELD 1.5mm
OM was visible on the epicardial surface, scattered calcifications, ELD 1.75mm (anastomosis performed over 1.5 shunt)
PDA wsa visible on the epicardial surface, normal carmona, calcifications present at crux, ELD 3.2mm
Excellent flow in all grafts on intraoperative transit-time U/S flow-prove assessment
Normal biventricular function w/ no VHD
Implants:
CT x 4 (B/L pleural, inferior mediastinal, superior mediastinal)
Sternal wires x 6
Sternal 'X' plate and 'square' plate secured w/ 12 - 12mm screws
Complications:
None
Condition:
63 sinus w/ isoelectric STs. 95/58. CVP 13. 97%
GTTS: cardizem 5, insulin 1, precedex 0.5, levophed 8
Stable/guarded to CVICU
--- NOTE | 2023-12-16 14:03 | W.PN.UPDATE ---
Update Note
Progress Note Update
58-year-old Mandarin speaking male was transferred to [facility] on 12/09/23 from [place] for CABG evaluation. Patient initially presented to [facility] with substernal chest pain. A cardiac catheterization on 12/05/2023
reported triple-vessel coronary disease. Patient was also noted to have possible left-sided perihilar mass per imaging. Repeat CT C/A/P on 12/09 with improvement of left lung compared to 12/04. Small right upper lobe nodule has not changed compared to
12/04. Pulmonary recommended follow-up CT chest in approximately 3 months given risk for lung cancer. PFTs reported no evidence of obstruction or restriction. On 12/14, patient developed hematuria and underwent cystoscopy with urology which was
negative. Patient had prophylactic 3 way Brandt placed by urology in the OR.
IV fluids: 2000
U.O.:� 550
UF:� 900
Blood:� none
Wires:� none
Inotropes:� Cardizem @ 2.5
Pressors:� levophed @ 8
Sedatives:� Precedex @ 0.5
�
NEURO: sedated on Precedex, pupils +2mm B/L
RESP: #8OT @23cm> 500/80%/14/5. Lungs clear B/L. 2 mediastinal (20cc on arrival) and R/L pleural (25cc on arrival) chest tubes to -20cm suction. Sanguineous drainage
CV: RRR +S1, S2, no S3, no�rub, no murmur. Dermabond to median sternotomy. RIJ intact
ABD: round, soft, no BS
EXT: no edema, +2/4 DP pulses B/L, no femoral bruit, RLE SHALOM wrap intact; LUE SHALOM wrap intact; right radial A-line intact
: Brandt with clear yellow urine
�
A/P: POD #0 s/p CABG x 4 (NORBERTO to LAD, L RA to OM, GSV to RI, GSV to PDA)
STEPHANIE: EF�55-60%, tr MR/TR
- wean and extubate
# CAD
- will require ASA/Plavix, statin (increased to 40mg from 20mg), BB, SGLT2i
- will need Norvasc x 3 months for radial patency after transitioning off IV Cardiz
# Left perihilar mass and small RUL nodule/current tobacco
- follow-up CT chest in 3 months given risk for lung cancer
- immediate lifelong tobacco cessation
# Post-op RUL atelectasis
- increase PEEP to 8
- repeat CXR in 1 hour
# Hematuria
- cysto negative 12/14
- 3 way Brandt for CBI if needed (urine clear immediatley post-op)
# acute surgical blood loss anemia-expected
- trend CBC
�
# T2DM (A1C 7.5)
- insulin infusion x 48h
- resume MFM and Jardiance to transition off insulin
- diabetic diet
�
[2023-12-16] MEDS: LOW STRENGTH ASPIRIN PO (14:08)
[2023-12-16] MEDS: NEURONTIN PO ×2 (14:08→15:37)
[2023-12-16] MEDS: TYLENOL PO (14:09)
[2023-12-16] MEDS: NOVOLOG FLEXPEN SC ×2 (14:09→15:38)
[2023-12-16 14:51] LABS: Glucose - Point of Care 146 mg/dl (70-99)
--- NOTE | 2023-12-16 14:54 | W.PN.INTV ---
Today's Communication / Plan
Recommendations
Wean ventilator per CT surgery protocol
Right upper lobe atelectasis per chest x-ray, follow
Incentive spirometry, airway clearance measures post extubation
ET tube exchange noted perioperatively
Wean pressors
Follow blood sugars
Follow-up CT chest 6 to 8 months post discharge
Lung cancer screening, tobacco cessation
Assessment
-
58-year-old male who presented to outside hospital, found to have triple-vessel coronary disease per catheterization. On imaging, was noted to have possible left perihilar mass. Transferred to [facility] for further workup 12/09/2023.
Now is status post bypass surgery 12/16/2023
S/p CABG x 4, 12/16/2023
Cross-clamp 90 minutes, CBP 140 minutes
Postoperative right upper lobe atelectasis
Triple-vessel coronary disease
High risk for PCI (per [facility]), transferred 12/09/2023 to [facility]
Left parahilar abnormality
Inflammatory appearing per my review
Small pulmonary nodule, less than 5 mm
Hyperglycemia, diabetes
Hematuria, while on heparin drip
Status post cystoscopy unremarkable, preoperatively
Conditions present prior to admission
Hypertension/hyperlipidemia
Diabetes
20+ pack-year history of smoking, ongoing
Family history of coronary disease
Father during surgery, details unclear
Plan/recommendations
At this time, patient remains critically ill but stable
Remains on Cardizem drip, low-dose norepinephrine, Precedex and insulin
Patient had left upper extremity radial artery harvested along with right lower extremity GSV
Remains on volume-cycled ventilation, adequate airway pressures
Chest tube with minimal drainage
Postoperative chest x-ray with right upper lobe atelectasis per my review, no pneumothorax, no significant tracheal shift
ET tube appropriate. Apparently ET tube had to be exchanged
Moving forward
Continue with volume-cycled ventilation per protocol
Wean to extubation
Suspect right upper lobe atelectasis. Can follow clinically
Right IJ in place, do not suspect pleural effusion at this time we will follow radiographically
Presently on low-dose norepinephrine and Cardizem for left upper extremity radial artery harvest
Wean as able
Await postoperative EKG
Preoperatively, patient had hematuria while on heparin therapy
Urology was consulted, cystoscopy unremarkable
Three-way Brandt catheter placed preoperatively
Reviewed CT imaging from before. Inflammatory appearing left perihilar abnormality, improving
Will require follow-up CT chest dated 6 to 8 weeks
Patient will qualify for lung cancer screening thereafter
Discussed with patient importance of tobacco cessation pre-operatively.
He plans to stop smoking
Reviewed with critical care nursing, CT surgery PA
TCCT 31 min
Subjective Dataa
Subjective Data
Date of Service:
Date of Service: December 16, 2023
Subjective:
Patient evaluated postoperatively. Remains critically ill, mechanical ventilation, chest tube in place, pressors
Objective Data
Data Reviewed
Vital Signs / I&O / Oxygen:
Vital Signs
Temp Pulse Resp BP Pulse Ox
98.2 F 57 16 105/84 98
12/16/23 05:33 12/16/23 06:00 12/16/23 05:33 12/16/23 05:34 12/16/23 05:33
Intake and Output
12/15/23 12/16/23 12/17/23
06:59 06:59 06:59
Intake Total 244 / 244 1200 / 1200
Output Total 2000 / 2000
Balance 244 / 244 -800 / -800
SaO2 98
Physical Exam
General: Comfortable and Other (Upper extremity A-line, IJ, chest tube)
HEENT: Normocephalic and Anicteric
Cardiovascular: S1-S2, Regular Rhythm, Murmur (n) and Rub (n)
Respiratory: Wheeze (n), Crackles (n), Rhonchi (n) and Non-Labored Respirations
GI: Soft and Non Distended
Neurology: Unresponsive (Sedated)
Skin: Cyanosis (n), Jaundice (n) and Rash (n)
Labs/Micro/Reports
Laboratory Results
12/16/23 12/16/23
06:00 07:33
PT Cancelled
INR Cancelled
APTT Cancelled
Microbiology
12/15/23 10:02 Urine Urine Culture - Final
NO GROWTH
[2023-12-16 15:01] LABS: B.E. -2.9 mmol/L; HCO3 24.4 mmol/L (21-28); O2 Saturation % 98.6 % (94-98); PCO2 52 mmHg (35-48); PO2 91 mmHg (83-108); Potassium 4.1 mMOL/L (3.5-5.1); Sodium 139 mMOL/L (136-145); pH 7.28 (7.35-7.45)
--- NOTE | 2023-12-16 15:14 | PTCARENOTE ---
assumed care of pt from the CVOR, sinus rhythm on tele w 1st degree Hb, BP via right radial sal[place] 117/75, CVP 10-12, + periphreal pulses, + left ulnar pulse. Lungs diminished, #8 ETT/ 24cm @ right lip, VENT SETTINGS: 60%/500/12/+8 Peep, pox 97%. CT
x4 w minimal amount of red drainage. Brandt catheter draining yellow. Routine labs, EKG, CXR completed.
DRIPS:
Cardizem 2.5mg/hr
Levophed 2mcg/min
Precedex 0.5mcg/kg/hr
Insulin titrated per glycemic protocol
[2023-12-16 15:15] LABS: Hematocrit 35.7 % (39.0-52.0); Hemoglobin 12.5 g/dL (13.0-18.0); Platelet Count 203 10^3/uL (130-400)
[2023-12-16 15:16] LABS: APTT 36.9 Sec (23.4-35.0); INR 1.46; PT 17.5 Sec (11.4-14.6)
[2023-12-16 15:21] LABS: Blood Urea Nitrogen 20 mg/dl (9-20); Estimated Creatinine Clearance 80 ml/min; Glucose 141 mg/dl (70-99); Magnesium 2.5 mg/dl (1.6-2.3)
[2023-12-16] MEDS: ANCEF 10 IV ×2 (15:36)
[2023-12-16] MEDS: NSS 500 IV (15:36)
[2023-12-16] MEDS: PACERONE PO (15:37)
[2023-12-16 15:50] LABS: Glucose - Point of Care 159 mg/dl (70-99)
[2023-12-16] MEDS: HYDROCORTISONE 1% CREAM TOPICAL (15:52)
[2023-12-16] MEDS: NOVOLOG FLEXPEN-LOW RESISTANCE SC ×2 (15:52)
--- NOTE | 2023-12-16 16:12 | PTCARENOTE ---
family at bedside, updated.
--- NOTE | 2023-12-16 16:23 | PTCARENOTE ---
pt woke spontaneously, BRIAN, hide and skin processing worker Ipad used to explain to pt weaning process.
[2023-12-16 16:35] LABS: B.E. -2.8 mmol/L; HCO3 23.2 mmol/L (21-28); Ionized Calcium 1.15 mMOL/L (1.15-1.33); O2 Saturation % 97.1 % (94-98); PCO2 44 mmHg (35-48); PO2 82 mmHg (83-108); Potassium 4.2 mMOL/L (3.5-5.1); Sodium 138 mMOL/L (136-145); pH 7.33 (7.35-7.45)
[2023-12-16] MEDS: DILAUDID 0.5 MG IV ×2 (17:00→17:10)
[2023-12-16 17:04] LABS: Glucose - Point of Care 127 mg/dl (70-99)
[2023-12-16] MEDS: VERSED 2 MG IV (17:05)
--- NOTE | 2023-12-16 17:16 | PTCARENOTE ---
Dr. Stout and pulm at bedside, bedside bronch completed. Pt was extubated post bronch.
[2023-12-16] MEDS: CALCIUM CHLORIDE 10% SYRINGE 50 MG IV (17:20)
[2023-12-16] MEDS: CALCIUM CHLORIDE 10% SYRINGE 50 ML IV (17:20)
--- NOTE | 2023-12-16 17:33 | W.PN.UPDATE ---
Update Note
Progress Note Update
Bronchoscopy note:
Indications: Right upper lobe axis postoperatively. Asked by CT surgery to perform bedside bronchoscopy for right upper lobe atelectasis, prior to extubation
Informed consent: Obtained by sister at bedside. Verbal consent
Findings: Patient was provided sedation with Versed and Dilaudid. Bronchoscope was advanced via ET tube. Mild secretions noted throughout ET tube proximally. Easily suctioned. Sasha was identified. There was some mild to moderate plugs in the
right upper lobe which were removed easily with suction. Following clearance of plugs, right upper lobe, right middle lobe, right lower lobe, left upper lobe, left lower lobe patent without significant secretions. Sasha is sharp. No samples were
sent. Patient did have some mild coughing with procedure
Following procedure, patient was successfully extubated without difficulty
CT surgery team at bedside.
Updated sister
--- NOTE | 2023-12-16 17:48 | PTCARENOTE ---
Dr. Stout, Dr. Bhakta, respiratory therapist and CT TOBY at bedside to bronch pt. Pt was medicated as instructed. VS remained stable throughout procedure. Pt was extubated by RT post procedure as instructed by . Pt is lethargic but
arousable. Pox 96% on 6L NC. Pt's sister at bedside, updated, questions encouraged.
[2023-12-16 18:10] LABS: Glucose - Point of Care 138 mg/dl (70-99)
[2023-12-16 18:17] LABS: Hematocrit 35.8 % (39.0-52.0); Hemoglobin 12.7 g/dL (13.0-18.0); Platelet Count 260 10^3/uL (130-400)
[2023-12-16] MEDS: LIPITOR PO (18:19)
[2023-12-16 18:58] LABS: Glucose - Point of Care 118 mg/dl (70-99)
[2023-12-16] MEDS: LOW STRENGTH ASPIRIN 81 MG PO (19:58)
[2023-12-16 19:59] LABS: Glucose - Point of Care 117 mg/dl (70-99)
[2023-12-16] MEDS: SENOKOT-S PO (19:59)
[2023-12-16] MEDS: SODIUM BICARBONATE 50 MEQ IV (20:07)
[2023-12-16] MEDS: CALCIUM CHLORIDE 10% SYRINGE 60 MG IV (20:16)
--- NOTE | 2023-12-16 20:22 | PTCARENOTE ---
Assumed care of patient from dayshift RN. Walking rounds completed. Pt Mandarin speaking - sister at the bedside to help translate. Pt sleepy but answering questions appropriately and BRIAN. Pt is SR on the tele monitor. HR 70s. BP 90-100s/50s. +Rub.
Bilateral DP pulses palpable. Right radial pulse / Left ulnar pulse palpable. Pt on 6 L NC. POX 96-98%. Pt attempting to cough up secretions. IS encouraged. CT x4 (mediastinal x2 and R/L pleural) to -20 suction, and output WNL. CT dressing CDI.
Abdomen soft/nontender. Hypoactive BS. No nausea. 3-way Brandt in-place and draining clear/yellow urine. Sternal Aquacel CDI. Left radial SHALOM bandage CDI. Right Leg SHALOM wrap CDI. Right groin intact and KENYA. Right arm PIV x3 CDI. Right radial a-line
CDI. Right IJ cordis w/ slick CDI. All lines leveled, zeroed, and flushed. Glycemic protocol followed. Levo infusing as ordered. Cardizem put on standby as ordered. Sodium Bicarb and Calcium chloride administered - see MAR. Pt given aspirin PO - see
MAR. See worklist for full nursing assessment and interventions.
[2023-12-16] MEDS: DILAUDID 0.25 MG IV (21:10)
[2023-12-16] MEDS: ALBUMIN 5% 250 IV (21:10)
[2023-12-16] MEDS: ANCEF 5 IV (22:06)
[2023-12-16] MEDS: TYLENOL 1000 MG PO (22:07)
[2023-12-16] MEDS: MUCINEX 600 MG PO (22:07)
[2023-12-16] MEDS: NEURONTIN 100 MG PO (22:07)
[2023-12-16 23:07] LABS: Glucose - Point of Care 109 mg/dl (70-99)
[2023-12-17] VITALS (27 sets, daily range): BP systolic 82–110; BP diastolic 60–73; PULSE 81; O2SAT 93–97; BMI 29.2
--- NOTE | 2023-12-17 00:16 | PTCARENOTE ---
No acute changes in assessment. Pt SR on the tele monitor. HR 80s. BP 100s/60s. Pt on 2 L NC. POX 98%. CT assessment unchanged from previous. 3-way Brandt catheter CDI and draining yellow urine. Levo titrated off per protocol. All surgical sites
stable. CVP and arterial line maintained. All lines leveled, zeroed, and flushed. Glycemic protocol followed. Pt tolerating ICE chips and sips of water. Pt's sister remains at the bedside to help w/ translation.
[2023-12-17 01:03] LABS: Glucose - Point of Care 101 mg/dl (70-99)
[2023-12-17 03:13] LABS: Glucose - Point of Care 125 mg/dl (70-99)
[2023-12-17 03:27] LABS: Hematocrit 31.6 % (39.0-52.0); Hemoglobin 11.4 g/dL (13.0-18.0); Mean Corp Hgb Conc. 36.1 g/dL (33.0-37.0); Mean Corpuscular Hgb 30.7 pg (27.0-31.0); Mean Corpuscular Volume 85.2 fL (80.0-94.0); Mean Platelet Volume 9.4 fL (7.4-10.4); Platelet Count 244 10^3/uL (130-400); Red Blood Cell Count 3.71 10^6/uL (4.70-6.10); Red Cell Dist. Width 12.6 % (11.5-14.5); White Blood Cell Count 13.3 10^3/uL (4.8-10.8)
--- NOTE | 2023-12-17 03:42 | PTCARENOTE ---
No acute changes in assessment. SR on the tele monitor. HR 80s. BP 90-100s/60s. Pt on 2 L NC. POX 97%. CT assessment unchanged from original. All surgical sites stable. Glycemic protocol followed. CVP and arterial line maintained. Labs drawn and
sent. EKG obtained. No c/o pain at this time.
--- NOTE | 2023-12-17 03:46 | W.PN.CT ---
Today's Communication / Plan
-
Plan:
-No major issues overnight. Hemodynamically and neurologically intact
-Successfully extubated on 12/16/23 @ 1715
-Weaned off of Levophed gtt overnight, remains on insulin gtt per protocol
-Will place Lopressor on hold for now given soft BP overnight and administer Norvasc for radial conduit
-No swan, U/O 1160 mL since OR
-EKG this AM with global ST-elevation c/w acute pericarditis, will administer 15 mg Toradol x 3 doses, creatinine is 0.9
-Cont. current meds (ASA, Lipitor, held Amiodarone, Norvasc; will add Plavix)
-Monitor chest tube output: 2meds 195/325, R/L pleurals 85/245
-D/C'd SLIC and a-line @ 0430
-Has 3 way foss for possible CBI given preop hematuria, d/c foss later today vs keep until tomorrow to assess for hematuria while on both ASA/Plavix. Urology f/u
-Telemetry phase tomorrow once off insulin gtt per protocol. Consider consult to diabetes education/management given hgb A1C of 7.5
-Maintain cordis
-No temporary PW
-Wean off of O2 as tolerated
-Encourage use of IS
-Cont. to encourage smoking cessation
-OOB into chair/Ambulate
Assessment / Plan
-
Assessment:
-S/p Median sternotomy/CABG x 4 (NORBERTO to LAD, L RA to OM, GSV to RI, GSV to PDA)/ Endoscopic harvest/prep of RLE GSV/ Endoscopic harvest/prep of LEFT RA, by Dr. Stout on 12/16/23, pod#1
-High risk PCI transfer from [facility] on 12/09/23
-Severe 3v CAD
-USA
-LVEF 55-60%
-Recent hives, 12/11/23
-Recent hematuria while on heparin gtt S/p cystoscopy- unremarkable, 12/15/23
-Hypertension
-Hyperlipidemia
-Class 1 obesity (BMI 30)
-Left upper lobe nodule (improved and cleared for surgery by Pulm)
-Active tobacco abuse (1 pk/day x 30 yrs)
-Mildly elevated LFTs
-S/P Cholecystectomy, 2022
-S/P umbilical hernia repair, 06/2022
-Acute postop blood loss/Anemia (stable without blood transfusion)
-Preop hematuria S/p placement of 3 way foss catheter intraop by Urology
-Acute postop RUL atelectasis S/P bronchoscopy with evacuation of mild secretions/mucus plugs, 12/16/23
-Acute postop hypovolemia with subsequent hypervolemia
-Acute postop EKG changes c/w acute pericarditis
Discussed patient care with: Cardiology, Nursing, Respiratory Therapy, Pharmacy and Care Team
Subjective
Procedure
Median sternotomy/CABG x 4 (NORBERTO to LAD, L RA to OM, GSV to RI, GSV to PDA)/ Endoscopic harvest/prep of RLE GSV/ Endoscopic harvest/prep of LEFT RA, by Dr. Stout on 12/16/23
-
Date of Service: December 17, 2023
Pt c/o incisional pain, otherwise feels well. EKG c/w acute pericarditis, will administer Toradol x 3 doses
Objective Data
-
Lab Results
12/17/23 03:11
PT 17.5 Sec (11.4-14.6) H 12/16/23 14:37
INR 1.46 12/16/23 14:37
APTT 36.9 Sec (23.4-35.0) H 12/16/23 14:37
Vital Signs
Vital Signs
Temp Pulse Resp BP Pulse Ox
98.7 F 87 16 92/68 97
12/17/23 03:00 12/17/23 03:00 12/17/23 03:00 12/17/23 03:00 12/17/23 03:00
CT Intake/Output/Weight
12/16/23 12/16/23 12/17/23
06:59 18:59 06:59
Intake Total 156.1 / 651.2 495.1 / 651.2
Output Total 700 / 1605 905 / 1605
Balance -543.9 / -953.8 -409.9 / -953.8
SaO2: 97 (2L)
Physical Exam
-
General: Awake, Oriented and AOx3
Cardiovascular: Regular rate & rhythm, No Murmurs, Rub (acute pericarditis) and No Gallop
Respiratory: Decreased Breath Sounds
Sternum: Stable
Incision: Clean, Dry, Intact and Dressing Intact
Extremities: No Edema
Data Reviewed
-
Lab Results: Results Reviewed
Medications: Active Meds Reviewed
Chest X-Ray: Report Reviewed and Image Reviewed
ECG: Report Reviewed and Image Reviewed
[2023-12-17 03:59] LABS: Blood Urea Nitrogen 18 mg/dl (9-20); Calcium 9.2 mg/dl (8.4-10.2); Carbon Dioxide 26 mmol/L (22-30); Chloride 107 mmol/L (98-107); Estimated Creatinine Clearance 80 ml/min; Glucose 113 mg/dl (70-99); Magnesium 1.9 mg/dl (1.6-2.3); Potassium 3.9 mmol/L (3.5-5.1); Sodium 141 mmol/L (135-145); eGFR > 60.00
[2023-12-17] MEDS: ALBUMIN 5% 250 IV (04:13)
[2023-12-17] MEDS: KCL 20 MEQ PO (05:00)
[2023-12-17] MEDS: TORADOL 15 MG IV ×3 (05:00→18:32)
--- NOTE | 2023-12-17 05:00 | PTCARENOTE ---
250 albumin administered per CTPA. Pt right arterial line and slick dc'd per order. Toradol ordered for pain / potassium replaced - see AUG. VSS. Pt sister at bedside to help translate.
[2023-12-17 05:01] LABS: Glucose - Point of Care 121 mg/dl (70-99)
[2023-12-17] MEDS: ANCEF 5 IV ×2 (06:01→14:55)
[2023-12-17] MEDS: TYLENOL 1000 MG PO ×3 (06:01→22:08)
--- NOTE | 2023-12-17 07:07 | W.PN.CD ---
Today's Communication / Plan
-
Routine post operative management.
Hemodynamics will not yet tolerate diuresis.
Incentive spirometry.
Ambulate when appropriate.
Chest tube/pain management per CT surgery.
Impression / Plan
-
Impression/Plan: 58M with hypertension, dyslipidemia, current smoker, and family history of coronary artery disease transferred from [facility] for CABG.
#Multivessel CAD
-Presented as USA.
-S/P CABG x4 (ESCOBEDO to LAD, LRA to OM, SVG to RI, SVG to RPDA) on 12/16/[address] Stout.
-Anticipate routine post operative care.
-Encourage incentive spirometry.
-Ambulate when appropriate.
-Chest tube/pain control per CT surgery.
#New hematuria
-Urology consulted, input appreciated.
-S/P cystoscopy (12/15/2023) without obvious bleeding source.
-Brandt catheter management per urology.
#Abnormal chest CT
-Scattered small indeterminate mediastinal lymph nodes, most prominent precarinal and prevascular.
-Pulmonary following.
-Repeat CT chest in 3 months.
#NIDDM
-Chronic, stable.
-HbA1c = 7.5%.
-He will benefit from GLP-1 analog.
#HLD
-Chronic, stable.
-Atorvastatin was increased from 20 mg daily to to 40 mg daily.
-Goal LDL < 55.
#Current smoker
-1 PPD for nearly 30 years.
-Cessation recommended.
#Obesity
-BMI 30.4
-He will benefit from GLP-1 analog.
Feed Mixer: Dr. Paige
Subjective/Interval Hx:
CABG x4 yesterday.
Postoperatively, the patient underwent bronchoscopy with aspiration of secretions to reduce RUL atelectasis prior to extubation.
Patient subsequently extubated without difficulty.
Received albumin 250 mL yesterday.
Weight is up 2.9 kg from gertrude (79.6 kg <--76.7 kg on 12/14/2023).
SaO2 96% on 2LNC.
Data:
CT Abdomen/Pelvis, 12/10/2023:
IMPRESSION:
Thoracic aorta normal in caliber with some calcific atherosclerotic changes of the thoracic aortic arch.
Abdominal aorta within the limits of normal in caliber with calcific atherosclerotic changes.
Overall limited evaluation without intravenous contrast.
Scattered small indeterminate mediastinal lymph nodes, most prominent precarinal and prevascular.
Prior cholecystectomy.
Colonic diverticulosis.
TTE, 12/10/2023:
CONCLUSIONS
Normal biventricular size and systolic function without regional wall motion
abnormality. Estimated LVEF 55-60%.
No significant valve disease.
No prior study available for comparison.
Physical Exam
Vital Signs/Labs
Vital Signs
Temp Pulse Resp BP Pulse Ox
37.1 C 86 16 93/68 96
12/17/23 06:00 12/17/23 05:45 12/17/23 06:00 12/17/23 06:00 12/17/23 06:00
12/15/23 12/16/23 12/17/23
11:59 11:59 11:59
Actual Weight 77.3 kg 77.2 kg 79.6 kg
12/17/23 03:11
12/17/23 03:11
PT 17.5 Sec (11.4-14.6) H 12/16/23 14:37
INR 1.46 12/16/23 14:37
APTT 36.9 Sec (23.4-35.0) H 12/16/23 14:37
Magnesium 1.9 mg/dl (1.6-2.3) 12/17/23 03:11
Physical Exam
Constitutional: No acute distress and Comfortable
EENT: Anicteric and Moist mucous membranes
Cardiovascular: Rhythm & rate is regular, Pedal edema is absent, JVD pressure is normal, S1S2 is normal and Murmur/rub/gallop absent
Respiratory: Respiratory effort normal, Lungs clear to auscul., Wheeze Absent, Crackles Absent and Rhonchi Absent
GI: Soft, Distention absent, Flat, Non tender and Normal bowel sounds
Neuro/Psych: Alert and Oriented
Data Reviewed
-
Date of Service: December 17, 2023
Medical Decision Making: Reviewed Test Results, Test Interpretation and Review of Case with other Provider
EKG: Tracing Personally Visualized and interpreted and Report Reviewed by me
Echo: Report Reviewed by me
X-Ray/CT/US/MRI/NUC/PET: Image Personally Visualized and interpreted and Report Reviewed by me
Medical Tests (PFT, Pathology etc): Image Personally Visualized and interpreted and Report Reviewed by me
Labs: Labs Reviewed by me
Old Records: Reviewed
--- NOTE | 2023-12-17 07:52 | W.PN.ANS.POP ---
Anesthesia Post Operative
- Anesthesia Post Op Note
Vital Signs Stable-See Nursing Note: Yes
Airway Patent: Yes
Adequate Pain Control: Yes
Change in Mental Status: No
Current Postoperative Nausea & Vomiting: No
Anesthesia Complications: No
General Anesthetic Recall: No
Unplanned Admission: No
Post Op Hydration Adequate: Yes
[2023-12-17 07:55] LABS: Glucose - Point of Care 115 mg/dl (70-99)
[2023-12-17] MEDS: NOVOLOG FLEXPEN 4 UNITS SC ×3 (08:22→17:46)
[2023-12-17] MEDS: BACTROBAN 2% OINTMENT 1 APPLIC NASAL ×2 (08:22→19:45)
[2023-12-17] MEDS: NORVASC 2.5 MG PO (08:23)
[2023-12-17] MEDS: SENOKOT-S 1 TABLET PO ×2 (08:23→19:45)
[2023-12-17] MEDS: FLEXERIL 5 MG PO (08:23)
[2023-12-17] MEDS: PROTONIX 40 MG PO (08:23)
[2023-12-17] MEDS: PLAVIX 75 MG PO (08:23)
[2023-12-17] MEDS: NEURONTIN 100 MG PO ×3 (08:23→22:08)
[2023-12-17] MEDS: LIDOCAINE 4% PATCH 1 PATCH TOPICAL (08:23)
[2023-12-17] MEDS: MUCINEX 600 MG PO ×2 (08:23→19:46)
[2023-12-17] MEDS: MAGNESIUM OXIDE 500 MG PO ×2 (08:23→19:45)
[2023-12-17] MEDS: LOW STRENGTH ASPIRIN 81 MG PO (08:23)
--- NOTE | 2023-12-17 08:54 | PTCARENOTE ---
Assumed care of patient at 0700. Pt is awake, alert, and oriented. Pt with minimal complaints of sternal pain. Pt remains SR with HR 80's. BP 110/69 MAP 81. Rub on auscultation. Pulse oximetry 94% on room air. Chest tube x4 in place, Mediastinal x2
and left/right pleural chest tubes in place draining serosanguineous drainage. Pt tolerating clear liquid diet. Remains on insulin gtt per glycemic protocol. Brandt catheter remains in place draining yellow urine. Midsternal incision Aquacel dressing
CDI. Right leg incision and right groin puncture approximated with surgical adhesive and KENYA. Left arm incisions approximated with surgical adhesive and KENYA. Pulses palpable. Right IJ Cordis in place with KVO. Pt currently resting OOB in chair with
sister at bedside.
--- NOTE | 2023-12-17 09:53 | W.PN.UPDATE ---
Update Note
Progress Note Update
pt with uneventful cabg
foss in place- urine clear
ucx negative
still uncertain of source of hematuria
continue flomax now and as outpt
remove foss per cardiac protocol
plan outpt f/u with urology
[2023-12-17 10:27] LABS: Glucose - Point of Care 116 mg/dl (70-99)
[2023-12-17 11:57] LABS: Glucose - Point of Care 98 mg/dl (70-99)
--- NOTE | 2023-12-17 12:15 | PTCARENOTE ---
Pt worked with cardiac rehab without issue. Remains SR with HR 80's. BP 93/62 MAP 72. Pulse oximetry 94% on room air. Brandt catheter removed per order at 1208 due to void by 1808.
--- NOTE | 2023-12-17 13:20 | W.PN.INTV ---
Today's Communication / Plan
Recommendations
Doing well post extubation, off pressors/stable on RA
Insulin protocol ongoing, titrating down
Encouraged PT/OT, OOB
Can likely transfer to [facility] once off gtts, we will sign off upon transfer
Assessment
-
58-year-old male who presented to outside hospital, found to have triple-vessel coronary disease per catheterization. On imaging, was noted to have possible left perihilar mass. Transferred to [facility] for further workup 12/09/2023.
Now is status post bypass surgery 12/16/2023
CAD s/p CABG x 4, 12/16/2023
Cross-clamp 90 minutes, CBP 140 minutes
Postoperative right upper lobe atelectasis
Triple-vessel coronary disease
High risk for PCI (per [facility]), transferred 12/09/2023 to [facility]
Left parahilar abnormality
Inflammatory appearing per my review
Small pulmonary nodule, less than 5 mm
Hyperglycemia, diabetes
Hematuria, while on heparin drip
Status post cystoscopy unremarkable, preoperatively
Conditions present prior to admission
Hypertension/hyperlipidemia
Diabetes
20+ pack-year history of smoking, ongoing
Family history of coronary disease
Father during surgery, details unclear
Plan/recommendations
At this time, patient remains stable
Off pressors
Patient had left upper extremity radial artery harvested along with right lower extremity GSV
Remains on volume-cycled ventilation, adequate airway pressures
Chest tube with minimal drainage
Postoperative chest x-ray with right upper lobe atelectasis per my review, no pneumothorax, no significant tracheal shift
ET tube appropriate. Apparently ET tube had to be exchanged
Extubated 12/16/23, doing well
Stable on RA
Suspect right upper lobe atelectasis. Can follow clinically
Right IJ in place, do not suspect pleural effusion at this time we will follow radiographically
Preoperatively, patient had hematuria while on heparin therapy
Urology was consulted, cystoscopy unremarkable
Three-way Brandt catheter placed preoperatively
Reviewed CT imaging from before. Inflammatory appearing left perihilar abnormality, improving
Will require follow-up CT chest dated 6 to 8 weeks
Patient will qualify for lung cancer screening thereafter
Discussed with patient importance of tobacco cessation pre-operatively.
He plans to stop smoking
Insulin protocol, weaning down
Transition when able
Reviewed with critical care nursing, CT surgery PA
Diagnostic Data
CXR 12/17/23- No evidence for significant pneumothorax. Improvement in the right upper lobe parenchymal opacity, suggesting improvement in atelectasis.
12/16/23- Postoperative tubes/lines. Confluent right upper lobe consolidation likely reflects atelectasis, possibly secondary to mucous plugging.
CT CAP 12/10/23- Thoracic aorta normal in caliber with some calcific atherosclerotic changes of the thoracic aortic arch. Abdominal aorta within the limits of normal in caliber with calcific atherosclerotic changes. Overall limited evaluation without
intravenous contrast.
Scattered small indeterminate mediastinal lymph nodes, most prominent precarinal and prevascular. Prior cholecystectomy. Colonic diverticulosis.
ECHO 12/10/23- Normal biventricular size and systolic function without regional wall motion abnormality. Estimated LVEF 55-60%. No significant valve disease. No prior study available for comparison.
PFT 12/10/23- FEV1 2.57L 82%, FVC 3.52L 88%, ratio 73. TLC 5.39L 89%, DLCO 81% (normal study)
-----
Critical Care time 31 mins -- The patient is admitted for acute critical illness for the treatment of vital organ failure and/or prevention of further life-threatening conditions. Total care includes time spent in review of history, physical exam,
medications, hemodynamic/ventilator parameters, laboratory data, imaging and discussion with house staff, pharmacy, respiratory therapy, home care manager, and nursing.
Subjective Dataa
Subjective Data
Date of Service:
Date of Service: December 17, 2023
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
Subjective:
remains stable, off pressors
extubated yesterday and doing well
insulin gtt ongoing
Objective Data
Data Reviewed
Vital Signs / I&O / Oxygen:
Vital Signs
Temp Pulse Resp BP Pulse Ox
98.8 F 91 18 93/62 93
12/17/23 12:00 12/17/23 12:15 12/17/23 12:00 12/17/23 12:00 12/17/23 11:15
Intake and Output
12/16/23 12/17/23 12/18/23
06:59 06:59 06:59
Intake Total 1200 / 1200 698.7 / 711.0 72.3 / 72.3
Output Total 1999 / 1999 1790 / 1825 325 / 325
Balance -800 / -800 -1091.3 / -1114.0 -252.7 / -252.7
SaO2 [SIMV] 99
SaO2 93
Nasal Cannula flow liters per 2
minute
Physical Exam
General: Comfortable
HEENT: Normocephalic, Anicteric and Moist Mucous Membranes
Cardiovascular: S1-S2, Regular Rhythm, Murmur (n) and Rub (n)
Respiratory: Wheeze (n), Crackles (n), Rhonchi (n) and Non-Labored Respirations
GI: Soft, Non Distended and Non Tender
Neurology: Awake, Alert, Oriented, AO x 3 and No Motor Deficits
Skin: Cyanosis (n), Jaundice (n) and Rash (n)
Labs/Micro/Reports
Lab Data
12/17/23 03:11
12/17/23 03:11
Laboratory Results
12/16/23 12/16/23
14:37 16:28
PT 17.5 H
INR 1.46
APTT 36.9 H
pH 7.28 L 7.33 L
pCO2 52 H 44
pO2 91 82 L
HCO3 24.4 23.2
O2 Delivery Level
Microbiology
12/15/23 10:02 Urine Urine Culture - Final
NO GROWTH
[2023-12-17] MEDS: NSS IV (14:41)
[2023-12-17] MEDS: NOVOLIN R INSULIN INFUSION 100 IV (15:10)
[2023-12-17 15:14] LABS: Glucose - Point of Care 111 mg/dl (70-99)
[2023-12-17 16:29] LABS: Glucose - Point of Care 109 mg/dl (70-99)
--- NOTE | 2023-12-17 16:30 | PTCARENOTE ---
Pt with no changes in assessment. Remains SR with HR 80's-90's. BP 92/69 MAP 77. Chest tube dressing changed. Pt remains DTV.
[2023-12-17 17:56] LABS: Glucose - Point of Care 123 mg/dl (70-99)
[2023-12-17] MEDS: LIPITOR 40 MG PO (18:22)
[2023-12-17] MEDS: PACERONE 200 MG PO ×2 (19:45→22:08)
[2023-12-17 19:50] LABS: Glucose - Point of Care 130 mg/dl (70-99)
--- NOTE | 2023-12-17 20:45 | PTCARENOTE ---
Assumed care of pt from dayshift RN. Walking rounds completed. Pt Mandarin speaking - sister at the bedside to help translate. Pt SR on the tele monitor. HR 80s. +Rub. BP 107/71. MAP 83. Bilateral DP pulses palpable. Left ulnar/right radial pulse
palpable. Trace edema in bilateral hands. Pt on RA. POX 93-94%. Lung sounds decreased. IS and deep breathing encouraged. CTx4 (mediastinal x2 and R/L pleural) to -20 suction, no airleak at this time, and output WNL. Abdomen soft/nontender. No
nausea. Pt is DTV. Bladder scanned for 155 mL. Sternal Aquacel CDI. Left ulnar graft site approximated w/ surgical adhesive and [employer]ICE PRESIDENT [employer]ALENT [employer]NAGEMENT. Right leg/groin approximated w/ surgical adhesive and KENYA. Right arm PIVx3 CDI. Right IJ cordis CDI. Glycemic
protocol followed. No c/o pain at this time. Pt assisted out of the chair and into the bed. See worklist for full nursing assessment and interventions. Call white within reach.
[2023-12-17 22:08] LABS: Glucose - Point of Care 104 mg/dl (70-99)
[2023-12-17 23:55] LABS: Glucose - Point of Care 93 mg/dl (70-99)
[2023-12-18] VITALS (21 sets, daily range): BP systolic 90–128; BP diastolic 64–83; PULSE 80; O2SAT 95–98; BMI 29.3
--- NOTE | 2023-12-18 00:02 | PTCARENOTE ---
No acute changes in assessment. Pt SR on the monitor. HR 80s. BP 90s/60s. CT assessment unchanged from previous. All surgical sites stable. Glycemic protocol followed. Pt resting comfortably in bed at this time. Call white within reach.
[2023-12-18 02:02] LABS: Glucose - Point of Care 101 mg/dl (70-99)
[2023-12-18 03:54] LABS: Glucose - Point of Care 100 mg/dl (70-99)
[2023-12-18 04:05] LABS: Hematocrit 29.5 % (39.0-52.0); Hemoglobin 10.3 g/dL (13.0-18.0); Ionized Calcium 1.13 mMOL/L (1.15-1.33); Mean Corp Hgb Conc. 34.9 g/dL (33.0-37.0); Mean Corpuscular Hgb 30.5 pg (27.0-31.0); Mean Corpuscular Volume 87.3 fL (80.0-94.0); Mean Platelet Volume 9.4 fL (7.4-10.4); Platelet Count 219 10^3/uL (130-400); Red Blood Cell Count 3.38 10^6/uL (4.70-6.10); Red Cell Dist. Width 13.1 % (11.5-14.5); White Blood Cell Count 12.5 10^3/uL (4.8-10.8)
[2023-12-18 04:30] LABS: Blood Urea Nitrogen 25 mg/dl (9-20); Calcium 8.5 mg/dl (8.4-10.2); Carbon Dioxide 31 mmol/L (22-30); Chloride 106 mmol/L (98-107); Estimated Creatinine Clearance 80 ml/min; Glucose 92 mg/dl (70-99); Magnesium 2.1 mg/dl (1.6-2.3); Potassium 3.9 mmol/L (3.5-5.1); Sodium 139 mmol/L (135-145); eGFR > 60.00
--- NOTE | 2023-12-18 04:32 | PTCARENOTE ---
No acute changes in assessment. Pt SR on the tele monitor. HR 80s. BP 90s-100s/60-70. CT assessment unchanged. Pt POX 95-96% on RA. All surgical sites stable. Labs drawn and sent. Pt bladder scanned for 122 mL. No urge to void at this time - urinal
within reach.
--- NOTE | 2023-12-18 04:39 | W.PN.CT ---
Today's Communication / Plan
-
Plan:
-No major issues overnight. Hemodynamically and neurologically intact
-Off all drips but insulin per protocol, will transition off today. Will consider Diabetes education/management, A1C 7.5
-Telemetry phase once off insulin gtt
-BB on hold given soft BP postop, tolerating 2.5 mg po QD Norvasc for radial conduit
-Cont. current meds (ASA, Plavix, Lipitor, Amiodarone, Norvasc)
-Consider d/c of chest tubes: 2meds 35/135, R/L pleurals 20/95
-Voiding spontaneously following foss removal, no hematuria noted
-Will replete electrolytes
-Maintain cordis another day
-No temporary PW
-Encourage use of IS
-Cont. to encourage smoking cessation
-OOB into chair/Ambulate
Assessment / Plan
-
Assessment:
-S/p Median sternotomy/CABG x 4 (NORBERTO to LAD, L RA to OM, GSV to RI, GSV to PDA)/ Endoscopic harvest/prep of RLE GSV/ Endoscopic harvest/prep of LEFT RA, by Dr. Stout on 12/16/23, pod#2
-High risk PCI transfer from [facility] on 12/09/23
-Severe 3v CAD
-USA
-LVEF 55-60%
-Recent hives, 12/11/23
-Recent hematuria while on heparin gtt S/p cystoscopy- unremarkable, 12/15/23
-Hypertension
-Hyperlipidemia
-T2DM (A1C 7.5)
-Class 1 obesity (BMI 30)
-Left upper lobe nodule (improved and cleared for surgery by Pulm)
-Active tobacco abuse (1 pk/day x 30 yrs)
-Mildly elevated LFTs
-S/P Cholecystectomy, 2022
-S/P umbilical hernia repair, 06/2022
-Acute postop blood loss/Anemia (stable without blood transfusion)
-Preop hematuria S/p placement of 3 way foss catheter intraop by Urology
-Acute postop RUL atelectasis S/P bronchoscopy with evacuation of mild secretions/mucus plugs, 12/16/23
-Acute postop hypovolemia with subsequent hypervolemia
-Acute postop EKG changes c/w acute pericarditis
Discussed patient care with: Cardiology, Nursing, Respiratory Therapy, Pharmacy and Care Team
Subjective
Procedure
Median sternotomy/CABG x 4 (NORBERTO to LAD, L RA to OM, GSV to RI, GSV to PDA)/ Endoscopic harvest/prep of RLE GSV/ Endoscopic harvest/prep of LEFT RA, by Dr. Stout on 12/16/23
-
Date of Service: December 18, 2023
Pt c/o mild incisional pain relieved by current analgesics, otherwise feels well
Objective Data
-
Lab Results
12/18/23 03:50
12/18/23 03:50
PT 17.5 Sec (11.4-14.6) H 12/16/23 14:37
INR 1.46 12/16/23 14:37
APTT 36.9 Sec (23.4-35.0) H 12/16/23 14:37
Vital Signs
Vital Signs
Temp Pulse Resp BP Pulse Ox
98.7 F 79 14 93/70 95
12/18/23 04:00 12/18/23 04:02 12/18/23 04:00 12/18/23 04:00 12/18/23 04:02
CT Intake/Output/Weight
12/17/23 12/17/23 12/18/23
06:59 18:59 06:59
Intake Total 542.6 / 711.0 143.1 / 259.9 116.8 / 259.9
Output Total 1090 / 1825 385 / 690 305 / 690
Balance -547.4 / -1114.0 -241.9 / -430.1 -188.2 / -430.1
SaO2: 95 (RA)
Physical Exam
-
General: Awake, Oriented and AOx3
Cardiovascular: Regular rate & rhythm, No Murmurs, Rub (acute pericarditis) and No Gallop
Respiratory: Decreased Breath Sounds (at bases, otherwise clear)
Sternum: Stable
Incision: Clean, Dry, Intact and Dressing Intact
Extremities: No Edema
Data Reviewed
-
Lab Results: Results Reviewed
Medications: Active Meds Reviewed
Chest X-Ray: Report Reviewed and Image Reviewed
ECG: Report Reviewed and Image Reviewed
[2023-12-18] MEDS: KCL 20 MEQ PO (04:52)
[2023-12-18] MEDS: CALCIUM CHLORIDE 10% SYRINGE 60 MG IV (05:13)
[2023-12-18 06:31] LABS: Glucose - Point of Care 96 mg/dl (70-99)
[2023-12-18] MEDS: TYLENOL 1000 MG PO ×3 (06:35→21:59)
[2023-12-18] MEDS: NOVOLOG FLEXPEN SC ×2 (08:07→12:37)
[2023-12-18 08:09] LABS: Glucose - Point of Care 141 mg/dl (70-99)
--- NOTE | 2023-12-18 08:45 | PTCARENOTE ---
Assumed care of patient at 0700. Pt is awake, alert, and oriented. Minimal complaints of pain, refused additional pain medication at this time. Pt remains SR with HR 80's. BP 107/69 MAP 81. Pulse oximetry 96% on room air. Chest tubes x4 in place to
wall suction, no sign of air leak or crepitus, drainage serosanguineous. Pt tolerating 1800 calorie diabetic diet. Voiding. Midsternal incision Aquacel dressing CDI. Right leg incision and left arm incision approximated and KENYA. Right IJ cordis in
place with KVO. Insulin gtt continues per glycemic protocol.
[2023-12-18] MEDS: NORVASC 2.5 MG PO (08:58)
[2023-12-18] MEDS: BACTROBAN 2% OINTMENT 1 APPLIC NASAL ×2 (08:58→20:19)
[2023-12-18] MEDS: PROTONIX 40 MG PO (08:58)
[2023-12-18] MEDS: LOW STRENGTH ASPIRIN 81 MG PO (08:58)
[2023-12-18] MEDS: PLAVIX 75 MG PO (08:58)
[2023-12-18] MEDS: MUCINEX 600 MG PO ×2 (08:58→20:18)
[2023-12-18] MEDS: SENOKOT-S 1 TABLET PO ×2 (08:58→20:18)
[2023-12-18] MEDS: MAGNESIUM OXIDE 500 MG PO ×2 (08:58→20:18)
[2023-12-18] MEDS: PACERONE 200 MG PO ×3 (08:58→21:59)
[2023-12-18] MEDS: FLOMAX 0.4 MG PO (08:58)
[2023-12-18] MEDS: NEURONTIN 100 MG PO ×3 (08:58→21:59)
[2023-12-18] MEDS: LIDOCAINE 4% PATCH 1 PATCH TOPICAL (09:00)
[2023-12-18 09:09] LABS: Glucose - Point of Care 177 mg/dl (70-99)
--- NOTE | 2023-12-18 09:45 | PTCARENOTE ---
Chest tubes x4 d/c'd per order without issue, sutures intact.
--- NOTE | 2023-12-18 09:46 | CM ---
dc plans remain dc to home when medically stable with F/U visit from CT Transitional care nurse
[2023-12-18] MEDS: LOPRESSOR 12.5 MG PO ×2 (10:55→20:18)
[2023-12-18 11:02] LABS: Glucose - Point of Care 140 mg/dl (70-99)
--- NOTE | 2023-12-18 11:16 | W.PN.CD ---
Today's Communication / Plan
-
Restart empagliflozin 10 mg daily.
Start metoprolol 12.5 mg daily.
Give furosemide 40 mg IV x1 and monitor response.
Ambulate.
Incentive spirometry.
Impression / Plan
-
Impression/Plan: 58M with hypertension, dyslipidemia, current smoker, and family history of coronary artery disease transferred from [facility] for CABG.
#Multivessel CAD
-Presented as USA.
-S/P CABG x4 (ESCOBEDO to LAD, LRA to OM, SVG to RI, SVG to RPDA) on 12/16/[address] Stout.
-Anticipate routine post operative care.
-EKG suggests pericarditis (diffuse ST elevation, non-ischemic pattern), but he does not acknowledge pericardial pain.
-Continue amlodipine for arterial conduit.
-Encourage incentive spirometry.
-Ambulate.
-Start metoprolol 12.5 mg daily.
-Give furosemide 40 mg IV x1 and monitor response.
#Hematuria
-Urology consulted, input appreciated.
-S/P cystoscopy (12/15/2023) without obvious bleeding source.
-Brandt catheter management per urology.
-Appears resolved at this point.
#Abnormal chest CT
-Scattered small indeterminate mediastinal lymph nodes, most prominent precarinal and prevascular.
-Pulmonary following.
-Repeat CT chest in 3 months.
#NIDDM
-Chronic, stable.
-HbA1c = 7.5%.
-Transition off of insulin gtt per protocol.
-Restart empagliflozin 10 mg daily.
-He will benefit from GLP-1 analog.
#HLD
-Chronic, stable.
-Atorvastatin was increased from 20 mg daily to to 40 mg daily.
-Goal LDL < 55.
#Current smoker
-1 PPD for nearly 30 years.
-Cessation recommended.
#Obesity
-BMI 30.4
-He will benefit from GLP-1 analog.
Leaf Tier: Dr. Paige
Subjective/Interval Hx:
Weight up 0.4 kg from yesterday (80 kg <-- 79.6 kg), 3.3 kg from baseline (76.7 kg).
Chest tubes discontinued this morning.
Beta cecilia has been held for soft blood pressure.
SaO2 = 93% on RA.
Hbg down to 10.3 from 11.4.
Data:
CT Abdomen/Pelvis, 12/10/2023:
IMPRESSION:
Thoracic aorta normal in caliber with some calcific atherosclerotic changes of the thoracic aortic arch.
Abdominal aorta within the limits of normal in caliber with calcific atherosclerotic changes.
Overall limited evaluation without intravenous contrast.
Scattered small indeterminate mediastinal lymph nodes, most prominent precarinal and prevascular.
Prior cholecystectomy.
Colonic diverticulosis.
TTE, 12/10/2023:
CONCLUSIONS
Normal biventricular size and systolic function without regional wall motion
abnormality. Estimated LVEF 55-60%.
No significant valve disease.
No prior study available for comparison.
Physical Exam
Vital Signs/Labs
Vital Signs
Temp Pulse Resp BP Pulse Ox
36.9 C 84 18 112/72 93
12/18/23 11:00 12/18/23 11:00 12/18/23 11:00 12/18/23 11:00 12/18/23 11:00
12/16/23 12/17/23 12/18/23
11:59 11:59 11:59
Actual Weight 77.2 kg 79.6 kg 80 kg
12/18/23 03:50
12/18/23 03:50
PT 17.5 Sec (11.4-14.6) H 12/16/23 14:37
INR 1.46 12/16/23 14:37
APTT 36.9 Sec (23.4-35.0) H 12/16/23 14:37
Magnesium 2.1 mg/dl (1.6-2.3) 12/18/23 03:50
Physical Exam
Constitutional: No acute distress and Comfortable
EENT: Anicteric and Moist mucous membranes
Cardiovascular: Rhythm & rate is regular, Pedal edema is absent, JVD pressure is normal, S1S2 is normal and Murmur/rub/gallop absent
Respiratory: Respiratory effort normal and Other (Decreased throughout.)
GI: Soft, Distention absent, Flat, Non tender and Normal bowel sounds
Neuro/Psych: AO x 3
Data Reviewed
-
Date of Service: December 18, 2023
Medical Decision Making: Reviewed Test Results, Independent Historian Assessment, Test Interpretation and Review of Case with other Provider
EKG: Tracing Personally Visualized and interpreted and Report Reviewed by me
Echo: Report Reviewed by me
X-Ray/CT/US/MRI/NUC/PET: Image Personally Visualized and interpreted and Report Reviewed by me
Medical Tests (PFT, Pathology etc): Image Personally Visualized and interpreted and Report Reviewed by me
Labs: Labs Reviewed by me
Old Records: Reviewed
--- NOTE | 2023-12-18 11:51 | W.PN.INTV ---
Today's Communication / Plan
Recommendations
Doing well today, remains stable off pressors
Transitioning off insulin gtt
Encouraged OOB/ambulation
Can transfer to tele once off insulin gtt, we will sign off upon transfer
Assessment
-
58-year-old male who presented to outside hospital, found to have triple-vessel coronary disease per catheterization. On imaging, was noted to have possible left perihilar mass. Transferred to [facility] for further workup 12/09/2023.
Now is status post bypass surgery 12/16/2023
CAD s/p CABG x 4, 12/16/2023
Cross-clamp 90 minutes, CBP 140 minutes
Postoperative right upper lobe atelectasis
Triple-vessel coronary disease
High risk for PCI (per [facility]), transferred 12/09/2023 to [facility]
Left parahilar abnormality
Inflammatory appearing per my review
Small pulmonary nodule, less than 5 mm
Hyperglycemia, diabetes
Hematuria, while on heparin drip
Status post cystoscopy unremarkable, preoperatively
Conditions present prior to admission
Hypertension/hyperlipidemia
Diabetes
20+ pack-year history of smoking, ongoing
Family history of coronary disease
Father during surgery, details unclear
Plan/recommendations
At this time, patient remains stable
Off pressors
Patient had left upper extremity radial artery harvested along with right lower extremity GSV
Extubated 12/16/23, doing well
Stable on RA
Suspect right upper lobe atelectasis. Can follow clinically
Right IJ in place, do not suspect pleural effusion at this time we will follow radiographically
Preoperatively, patient had hematuria while on heparin therapy
Urology was consulted, cystoscopy unremarkable
Three-way Brandt catheter placed preoperatively
Reviewed CT imaging from before. Inflammatory appearing left perihilar abnormality, improving
Will require follow-up CT chest dated 6 to 8 weeks
Patient will qualify for lung cancer screening thereafter
Discussed with patient importance of tobacco cessation pre-operatively.
He plans to stop smoking
Insulin protocol, weaning down
Transition when able
Encouraged OOB/ambulation
Reviewed with critical care nursing, CT surgery PA
Diagnostic Data
CXR 12/17/23- No evidence for significant pneumothorax. Improvement in the right upper lobe parenchymal opacity, suggesting improvement in atelectasis.
12/16/23- Postoperative tubes/lines. Confluent right upper lobe consolidation likely reflects atelectasis, possibly secondary to mucous plugging.
CT CAP 12/10/23- Thoracic aorta normal in caliber with some calcific atherosclerotic changes of the thoracic aortic arch. Abdominal aorta within the limits of normal in caliber with calcific atherosclerotic changes. Overall limited evaluation without
intravenous contrast.
Scattered small indeterminate mediastinal lymph nodes, most prominent precarinal and prevascular. Prior cholecystectomy. Colonic diverticulosis.
ECHO 12/10/23- Normal biventricular size and systolic function without regional wall motion abnormality. Estimated LVEF 55-60%. No significant valve disease. No prior study available for comparison.
PFT 12/10/23- FEV1 2.57L 82%, FVC 3.52L 88%, ratio 73. TLC 5.39L 89%, DLCO 81% (normal study)
-----
Critical Care time 31 mins -- The patient is admitted for acute critical illness for the treatment of vital organ failure and/or prevention of further life-threatening conditions. Total care includes time spent in review of history, physical exam,
medications, hemodynamic/ventilator parameters, laboratory data, imaging and discussion with house staff, pharmacy, respiratory therapy, door tender, and nursing.
Subjective Dataa
Subjective Data
Date of Service:
Date of Service: December 18, 2023
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
Subjective:
sitting in chair, no events
stable off pressors, not on o2
minimal pain
Objective Data
Data Reviewed
Vital Signs / I&O / Oxygen:
Vital Signs
Temp Pulse Resp BP Pulse Ox
98.5 F 84 18 112/72 93
12/18/23 11:00 12/18/23 11:00 12/18/23 11:00 12/18/23 11:00 12/18/23 11:00
Intake and Output
12/17/23 12/18/23 12/19/23
06:59 06:59 06:59
Intake Total 698.7 / 711.0 282.5 / 293.0 57.5 / 57.5
Output Total 1790 / 1825 710 / 710 45 / 45
Balance -1091.3 / -1114.0 -427.5 / -417.0 12.5 / 12.5
SaO2 [SIMV] 99
SaO2 93
Nasal Cannula flow liters per 2
minute
Physical Exam
General: Comfortable
HEENT: Normocephalic, Anicteric and Moist Mucous Membranes
Cardiovascular: S1-S2, Regular Rhythm, Murmur (n) and Rub (n)
Respiratory: Wheeze (n), Crackles (n), Rhonchi (n) and Non-Labored Respirations
GI: Soft, Non Distended and Non Tender
Neurology: Awake, Alert, Oriented, AO x 3 and No Motor Deficits
Skin: Cyanosis (n), Jaundice (n) and Rash (n)
Labs/Micro/Reports
Lab Data
12/18/23 03:50
12/18/23 03:50
Microbiology
12/15/23 10:02 Urine Urine Culture - Final
NO GROWTH
--- NOTE | 2023-12-18 12:44 | PTCARENOTE ---
Pt ambulating with cardiac rehab without issue. Pt remains SR with HR 80's. BP 120/76 MAP 90. Pulse oximetry 95% on room air. Currently OOB in chair with sister at bedside.
[2023-12-18] MEDS: NSS 500 IV (13:31)
[2023-12-18 13:35] LABS: Glucose - Point of Care 182 mg/dl (70-99)
[2023-12-18 14:45] LABS: Glucose - Point of Care 139 mg/dl (70-99)
[2023-12-18] MEDS: GLUCOPHAGE 500 MG PO (17:35)
[2023-12-18] MEDS: LIPITOR 40 MG PO (17:35)
--- NOTE | 2023-12-18 17:38 | PTCARENOTE ---
Pt with no changes in assessment. Pt remains SR with HR 80's. BP 107/71 MAP 82. Pulse oximetry 94% on room air. Pt now off of insulin gtt. Currently resting OOB in chair.
[2023-12-18 18:11] LABS: Glucose - Point of Care 160 mg/dl (70-99)
[2023-12-18] MEDS: NOVOLOG FLEXPEN-MODERATE RESISTANCE 1 UNITS SC (18:11)
--- NOTE | 2023-12-18 21:00 | PTCARENOTE ---
Assumed care of pt from dez RN. Walking rounds completed. Pt AAOx3. Pt Mandarin speaking - sister at the bedside to help translate. SR on the monitor. HR 80-90s. BP stable. Palpable pulses throughout. Pt on RA. POX 94-95%. Lung sounds
diminished at the base. IS and deep breathing encouraged. CT dressing CDI. Abdomen soft/nontender. Pt voiding yellow urine in the urinal. All surgical sites stable. Right IJ cordis w/ KVO CDI. Pt ambulated in sanders and around room w/ standby assist.
No c/o pain at this time. Call white within reach.
[2023-12-18 22:03] LABS: Glucose - Point of Care 191 mg/dl (70-99)
--- NOTE | 2023-12-18 23:50 | PTCARENOTE ---
No acute changes in assessment. Pt SR on the monitor. HR 80-90s. BP stable. RA. POX 95%. Pt resting in bed at this time. All surgical sites stable. No c/o pain. Call white within reach.
[2023-12-19] VITALS (9 sets, daily range): BP systolic 91–118; BP diastolic 60–85; PULSE 77; O2SAT 95–97; BMI 29.3
--- NOTE | 2023-12-19 04:04 | PTCARENOTE ---
No acute changes in assessment. SR on the monitor. HR 80s. BP 107/70. RA. POX 94%. Labs drawn and sent. Denies pain at this time. Call white within reach.
[2023-12-19 04:11] LABS: Hematocrit 30.8 % (39.0-52.0); Hemoglobin 10.6 g/dL (13.0-18.0); Mean Corp Hgb Conc. 34.4 g/dL (33.0-37.0); Mean Corpuscular Hgb 30.3 pg (27.0-31.0); Mean Platelet Volume 9.6 fL (7.4-10.4); Platelet Count 241 10^3/uL (130-400); Red Cell Dist. Width 12.8 % (11.5-14.5); White Blood Cell Count 11.3 10^3/uL (4.8-10.8)
[2023-12-19 04:34] LABS: Blood Urea Nitrogen 18 mg/dl (9-20); Calcium 8.5 mg/dl (8.4-10.2); Carbon Dioxide 26 mmol/L (22-30); Chloride 105 mmol/L (98-107); Estimated Creatinine Clearance 115 ml/min; Glucose 141 mg/dl (70-99); Magnesium 1.9 mg/dl (1.6-2.3); Potassium 4.1 mmol/L (3.5-5.1); Sodium 138 mmol/L (135-145); eGFR > 60.00
--- NOTE | 2023-12-19 05:37 | W.PN.CT ---
Today's Communication / Plan
-
-pod #3
-doing well, no issues overnight, ambulated last night without problems
-weaned off O2 - pOx 94% on RA
-Hg stable - 10.6/30.8
-continue current meds
-encourage IS, OOB
Assessment / Plan
-
Assessment:
-S/p Median sternotomy/CABG x 4 (NORBERTO to LAD, L RA to OM, GSV to RI, GSV to PDA)/ Endoscopic harvest/prep of RLE GSV/ Endoscopic harvest/prep of LEFT RA, by Dr. Stout on 12/16/23, pod#3
-High risk PCI transfer from [facility] on 12/09/23
-Severe 3v CAD
-USA
-LVEF 55-60%
-Recent hives, 12/11/23
-Recent hematuria while on heparin gtt S/p cystoscopy- unremarkable, 12/15/23
-Hypertension
-Hyperlipidemia
-T2DM (A1C 7.5)
-Class 1 obesity (BMI 30)
-Left upper lobe nodule (improved and cleared for surgery by Pulm)
-Active tobacco abuse (1 pk/day x 30 yrs)
-Mildly elevated LFTs
-S/P Cholecystectomy, 2022
-S/P umbilical hernia repair, 06/2022
-Acute postop blood loss/Anemia (stable without blood transfusion)
-Preop hematuria S/p placement of 3 [address] foss catheter intraop by Urology
-Acute postop RUL atelectasis S/P bronchoscopy with evacuation of mild secretions/mucus plugs, 12/16/23
-Acute postop hypovolemia with subsequent hypervolemia
-Acute postop EKG changes c/w acute pericarditis
Discussed patient care with: Nursing and Care Team
Subjective
Procedure
Median sternotomy/CABG x 4 (NORBERTO to LAD, L RA to OM, GSV to RI, GSV to PDA)/ Endoscopic harvest/prep of RLE GSV/ Endoscopic harvest/prep of LEFT RA, by Dr. Stout on 12/16/23
-
Date of Service: December 19, 2023
Objective Data
-
Lab Results
12/19/23 03:52
12/19/23 03:52
PT 17.5 Sec (11.4-14.6) H 12/16/23 14:37
INR 1.46 12/16/23 14:37
APTT 36.9 Sec (23.4-35.0) H 12/16/23 14:37
Vital Signs
Vital Signs
Temp Pulse Resp BP Pulse Ox
98.5 F 83 14 107/70 94
12/19/23 03:48 12/19/23 03:48 12/19/23 03:48 12/19/23 03:48 12/19/23 03:[address] Intake/Output/Weight
12/18/23 12/18/23 12/19/23
06:59 18:59 06:59
Intake Total 139.4 / 293.0 82.0 / 172.0 90 / 172.0
Output Total 325 / 710 545 / 1020 475 / 1020
Balance -185.6 / -417.0 -463.0 / -848.0 -385 / -848.0
SaO2: 94
Physical Exam
-
General: Awake and AOx3
Cardiovascular: Regular rate & rhythm, No Murmurs and No Rub
Respiratory: Decreased Breath Sounds
Sternum: Stable
Incision: Clean, Dry and Intact
Extremities: Other (trace edema b/l, 1+ DP b/l)
Data Reviewed
-
Lab Results: Results Reviewed
Medications: Active Meds Reviewed
Chest X-Ray: Report Reviewed and Image Reviewed
ECG: Report Reviewed and Image Reviewed
[2023-12-19] MEDS: TYLENOL 1000 MG PO ×2 (06:15→20:57)
--- NOTE | 2023-12-19 07:30 | PTCARENOTE ---
Assumed care of patient from adobe cq developer RN. AAO x 3 sitting up in the chair. Using global compensation analyst, pt denies pain, and offers no other complaints. SR on monitor. Room air 97%. Using IS to 750, needs encouragement. Abdomen soft and non tender.
Appetite good, voiding w/o issue. Surgical sites c,d,i. Pulses palpable. Trace edema appreciated.
--- NOTE | 2023-12-19 07:49 | W.PN.CD ---
Today's Communication / Plan
-
ECG today
Impression / Plan
-
Impression/Plan: 58M with hypertension, dyslipidemia, current smoker, and family history of coronary artery disease transferred from [facility] for CABG.
#Multivessel CAD
-Presented as [place].
-S/P CABG x4 (ESCOBEDO to LAD, LRA to OM, SVG to RI, SVG to RPDA) on 12/16/[address] Stout. Today is POD 3
-EKG POD 1 suggested pericarditis (diffuse ST elevation, non-ischemic pattern). Will repeat today
-Encourage incentive spirometry.
-Ambulate.
-Start metoprolol 12.5 mg daily.
#Hematuria
-Urology involved
-S/P cystoscopy (12/15/2023) without obvious bleeding source.
#Abnormal chest CT
-Scattered small indeterminate mediastinal lymph nodes, most prominent precarinal and prevascular.
-Pulmonary following.
-Repeat CT chest in 3 months.
#NIDDM
-Chronic, stable.
-HbA1c = 7.5%.
-Transition off of insulin gtt per protocol.
-Restart empagliflozin 10 mg daily.
-He will benefit from GLP-1 analog.
#HLD
-Chronic, stable.
-Atorvastatin was increased from 20 mg daily to to 40 mg daily.
-Goal LDL < 55.
#Current smoker
-1 PPD for nearly 30 years.
-Cessation mandatory
#Obesity
-BMI 30.4
-He will benefit from GLP-1 analog.
Manager Loss Prevention: Dr. Paige
Subjective/Interval Hx:
Feels improved. No CP, SOB
Data:
CT Abdomen/Pelvis, 12/10/2023:
IMPRESSION:
Thoracic aorta normal in caliber with some calcific atherosclerotic changes of the thoracic aortic arch.
Abdominal aorta within the limits of normal in caliber with calcific atherosclerotic changes.
Overall limited evaluation without intravenous contrast.
Scattered small indeterminate mediastinal lymph nodes, most prominent precarinal and prevascular.
Prior cholecystectomy.
Colonic diverticulosis.
TTE, 12/10/2023:
CONCLUSIONS
Normal biventricular size and systolic function without regional wall motion
abnormality. Estimated LVEF 55-60%.
No significant valve disease.
No prior study available for comparison.
Physical Exam
Vital Signs/Labs
Vital Signs
Temp Pulse Resp BP Pulse Ox
98.5 F 83 14 107/70 94
12/19/23 03:48 12/19/23 03:48 12/19/23 03:48 12/19/23 03:48 12/19/23 05:40
12/18/23 12/19/23 12/20/23
06:59 06:59 06:59
Actual Weight 176 lb 5.917 oz 176 lb 5.917 oz
12/19/23 03:52
12/19/23 03:52
PT 17.5 Sec (11.4-14.6) H 12/16/23 14:37
INR 1.46 12/16/23 14:37
APTT 36.9 Sec (23.4-35.0) H 12/16/23 14:37
Magnesium 1.9 mg/dl (1.6-2.3) 12/19/23 03:52
Physical Exam
Constitutional: Comfortable
Cardiovascular: Rhythm & rate is regular and S1S2 is normal
Respiratory: Respiratory effort normal, Wheeze Absent, Crackles Absent and Rhonchi Present
GI: Non tender
Neuro/Psych: AO x 3 and Motor deficits absent
Data Reviewed
-
Date of Service: December 19, 2023
[2023-12-19] MEDS: LOW STRENGTH ASPIRIN 81 MG PO (08:18)
[2023-12-19] MEDS: PLAVIX 75 MG PO (08:18)
[2023-12-19] MEDS: MUCINEX 600 MG PO ×2 (08:18→20:57)
[2023-12-19] MEDS: NEURONTIN 100 MG PO ×3 (08:18→20:58)
[2023-12-19] MEDS: MAGNESIUM OXIDE 500 MG PO ×2 (08:18→20:57)
[2023-12-19] MEDS: FLOMAX 0.4 MG PO (08:18)
[2023-12-19] MEDS: GLUCOPHAGE 500 MG PO ×2 (08:18→17:14)
[2023-12-19] MEDS: JARDIANCE 10 MG PO (08:19)
[2023-12-19] MEDS: PACERONE 200 MG PO ×3 (08:19→20:58)
[2023-12-19] MEDS: LIDOCAINE 4% PATCH TOPICAL (08:19)
[2023-12-19] MEDS: BACTROBAN 2% OINTMENT 1 APPLIC NASAL ×2 (08:19→20:56)
[2023-12-19] MEDS: SENOKOT-S 1 TABLET PO (08:19)
[2023-12-19] MEDS: LOPRESSOR 12.5 MG PO ×2 (08:19→20:58)
[2023-12-19] MEDS: NORVASC 2.5 MG PO (08:19)
[2023-12-19] MEDS: NOVOLOG FLEXPEN-MODERATE RESISTANCE SC ×3 (08:20→15:40)
[2023-12-19] MEDS: PROTONIX 40 MG PO (08:46)
[2023-12-19] MEDS: NSS IV (10:42)
--- NOTE | 2023-12-19 11:41 | CM ---
CM following for DC planning needs.
Met w/ patient and sister, Yuli at bedside. (Yuli cell: [phone]).
Patient is feeling well. Reviewed DC plan for home w/ CT Transitional Care RN. Sisters will provide support at DC; they are Comoran-speaking and can assist w/ translation with the CT RN.
Plan remains for home w/ CT Transitional Care RN.
Will remain available for DC planning needs.
--- NOTE | 2023-12-19 12:47 | PTCARENOTE ---
RT IJ cordis removed per ASSISTANT GENERAL MANAGER order. Pt tolerated w/o issue. Ambulating at keesha, able to preform a BM in the bathroom. VSS. Assessment unchanged from prior.
[2023-12-19] MEDS: TYLENOL PO (14:45)
[2023-12-19 15:39] LABS: Glucose - Point of Care 139 mg/dl (70-99)
--- NOTE | 2023-12-19 15:45 | PTCARENOTE ---
VSS, c/o feeling sweaty when reassessed. Pt is diaphoretic to touch on bilateral upper arms. Blood sugar obtained at 139. Denies any other s/s. Assessment unchanged. CT COOKEE notified.
[2023-12-19] MEDS: LIPITOR 40 MG PO (17:14)
--- NOTE | 2023-12-19 20:00 | PTCARENOTE ---
PT AAOx4 w/ family at bedside. all surgical sights CDI. NS on monitor VSS. RA clear breath sounds GI & wnl. all IV sights wnl. see worklist for detailed assessment
[2023-12-19] MEDS: SENOKOT-S PO (20:58)
[2023-12-19] MEDS: ROXICODONE 2.5 MG PO (21:03)
[2023-12-20] VITALS (7 sets, daily range): BP systolic 101–118; BP diastolic 60–87; PULSE 81; O2SAT 97–98; BMI 28.2
--- NOTE | 2023-12-20 | PTCARENOTE ---
no change from previous assessment
--- NOTE | 2023-12-20 04:00 | PTCARENOTE ---
no change from previous assessment
[2023-12-20 05:49] LABS: Hematocrit 35.1 % (39.0-52.0); Hemoglobin 12.4 g/dL (13.0-18.0); Mean Corp Hgb Conc. 35.3 g/dL (33.0-37.0); Mean Corpuscular Hgb 30.5 pg (27.0-31.0); Mean Corpuscular Volume 86.5 fL (80.0-94.0); Mean Platelet Volume 9.1 fL (7.4-10.4); Platelet Count 285 10^3/uL (130-400); Red Blood Cell Count 4.06 10^6/uL (4.70-6.10); Red Cell Dist. Width 12.7 % (11.5-14.5); White Blood Cell Count 9.4 10^3/uL (4.8-10.8)
[2023-12-20 06:18] LABS: Blood Urea Nitrogen 16 mg/dl (9-20); Calcium 8.7 mg/dl (8.4-10.2); Carbon Dioxide 25 mmol/L (22-30); Chloride 104 mmol/L (98-107); Estimated Creatinine Clearance 100 ml/min; Glucose 105 mg/dl (70-99); Magnesium 2.1 mg/dl (1.6-2.3); Potassium 4.4 mmol/L (3.5-5.1); Sodium 136 mmol/L (135-145); eGFR > 60.00
--- NOTE | 2023-12-20 06:45 | W.PN.CT ---
Today's Communication / Plan
-
-pod #4
-doing well, no issues overnight
-weaned off O2 - pOx 98% on RA
-2v-CXR today
-continue current meds
-encourage IS, OOB
-d/c home
Assessment / Plan
-
Assessment:
-S/p Median sternotomy/CABG x 4 (NORBERTO to LAD, L RA to OM, GSV to RI, GSV to PDA)/ Endoscopic harvest/prep of RLE GSV/ Endoscopic harvest/prep of LEFT RA, by Dr. Stout on 12/16/23, pod#4
-High risk PCI transfer from [facility] on 12/09/23
-Severe 3v CAD
-[place]
-LVEF 55-60%
-Recent hives, 12/11/23
-Recent hematuria while on heparin gtt S/p cystoscopy- unremarkable, 12/15/23
-Hypertension
-Hyperlipidemia
-T2DM (A1C 7.5)
-Class 1 obesity (BMI 30)
-Left upper lobe nodule (improved and cleared for surgery by Pulm)
-Active tobacco abuse (1 pk/day x 30 yrs)
-Mildly elevated LFTs
-S/P Cholecystectomy, 2022
-S/P umbilical hernia repair, 06/2022
-Acute postop blood loss/Anemia (stable without blood transfusion)
-Preop hematuria S/p placement of 3 [address] foss catheter intraop by Urology
-Acute postop RUL atelectasis S/P bronchoscopy with evacuation of mild secretions/mucus plugs, 12/16/23
-Acute postop hypovolemia with subsequent hypervolemia
-Acute postop EKG changes c/w acute pericarditis
Discussed patient care with: Nursing and Care Team
Subjective
Procedure
Median sternotomy/CABG x 4 (NORBERTO to LAD, L RA to OM, GSV to RI, GSV to PDA)/ Endoscopic harvest/prep of RLE GSV/ Endoscopic harvest/prep of LEFT RA, by Dr. Stout on 12/16/23
-
Date of Service: December 20, 2023
Objective Data
-
PT 17.5 Sec (11.4-14.6) H 12/16/23 14:37
INR 1.46 12/16/23 14:37
APTT 36.9 Sec (23.4-35.0) H 12/16/23 14:37
Vital Signs
Vital Signs
Temp Pulse Resp BP Pulse Ox
98.1 F 76 18 109/72 98
12/20/23 00:59 12/20/23 00:45 12/19/23 20:00 12/19/23 20:58 12/20/23 00:[address] Intake/Output/Weight
12/19/23 12/19/23 12/20/23
06:59 18:59 06:59
Intake Total 90 / 172.0 850 / 850
Output Total 475 / 1020 750 / 750
Balance -385 / -848.0 100 / 100
SaO2: 98
Physical Exam
-
General: Awake and AOx3
Cardiovascular: Regular rate & rhythm, No Murmurs and No Rub
Respiratory: Decreased Breath Sounds
Sternum: Stable
Incision: Clean, Dry and Intact
Extremities: Other (trace edema b/l, 1+ DP b/l)
[2023-12-20] MEDS: TYLENOL PO (07:23)
[2023-12-20] MEDS: NOVOLOG FLEXPEN-MODERATE RESISTANCE SC (07:23)
[2023-12-20] MEDS: LIDOCAINE 4% PATCH TOPICAL (07:24)
[2023-12-20] MEDS: SENOKOT-S PO (07:24)
[2023-12-20] MEDS: NSS IV (07:24)
[2023-12-20] MEDS: PLAVIX 75 MG PO (08:23)
[2023-12-20] MEDS: LOW STRENGTH ASPIRIN 81 MG PO (08:23)
[2023-12-20] MEDS: PACERONE 200 MG PO (08:23)
[2023-12-20] MEDS: LOPRESSOR 12.5 MG PO (08:23)
[2023-12-20] MEDS: MUCINEX 600 MG PO (08:23)
[2023-12-20] MEDS: FLOMAX 0.4 MG PO (08:23)
[2023-12-20] MEDS: MAGNESIUM OXIDE 500 MG PO (08:23)
[2023-12-20] MEDS: PROTONIX 40 MG PO (08:24)
[2023-12-20] MEDS: BACTROBAN 2% OINTMENT 1 APPLIC NASAL (08:24)
[2023-12-20] MEDS: GLUCOPHAGE 500 MG PO (08:24)
[2023-12-20] MEDS: NEURONTIN 100 MG PO (08:24)
[2023-12-20] MEDS: JARDIANCE 10 MG PO (08:24)
[2023-12-20] MEDS: NORVASC 2.5 MG PO (08:24)
--- NOTE | 2023-12-20 08:41 | W.DCSUMMARY ---
Discharge Summary
Discharge Data
Date of Admission: 12/09/23
Date of Discharge: 12/20/23
-
Pending Results: No
Hospital Course
Primary care physician: Regina Mcduffie
Outpatient binder operator: Hero Paige
Inpatient consultants: [facility] Cardiology
Procedures:
1. Coronary artery bypass grafting
Primary Diagnosis:
1. Multivessel coronary disease
Secondary Diagnoses:
1. Hypertension
2. Hyperlipidemia
3. Type 2 diabetes (A1c 7.5)
4. COPD/current tobacco (30pk/yr hx) without oxygen use
5. Preoperative hematuria due to heparin therapy
6. Postoperative pericarditis
7. Left upper lobe nodule (improved and cleared for surgery by Pulm)
HPI: 58-year-old Mandarin speaking male was transferred to [facility] on 12/09/23 from [place] for CABG evaluation. Patient initially presented to [facility] with substernal chest pain. A cardiac catheterization on
12/05/2023 reported triple-vessel coronary disease. Patient was also noted to have possible left-sided perihilar mass per imaging.
Hospital course: Repeat CT C/A/P on 12/09 with improvement of left lung compared to 12/04. Small right upper lobe nodule has not changed compared to 12/04. Pulmonary recommended follow-up CT chest in approximately 3 months given risk for lung cancer.
PFTs reported no evidence of obstruction or restriction. On 12/14, patient developed hematuria and underwent cystoscopy with urology which was negative. Patient had prophylactic 3 way Brandt placed by urology in the OR and Flomax initiated
postoperatively. Patient underwent CABG x 4 (NORBERTO to LAD, L RA to OM, GSV to RI, GSV to PDA) with Dr. Titi Stout on 12/16/2023. Postprocedure TTE reported an EF of 60%. Patient returned to CVICU on Cardizem, Levophed, insulin, and Precedex.
Patient did not require any intraoperative blood products. Patient had no temporary epicardial pacing wires. Initial chest x-ray with right upper lobe atelectasis. Patient underwent bronchoscopy for small amount of white mucus. Patient was
extubated at 1715. Levophed was weaned off on postoperative day #1 and A-line/slick and Brandt were discontinued. No further hematuria was observed. Norvasc was added to maintain radial patency which will continue for 3 months. The morning EKG
reported pericarditis and patient was treated with Toradol 15 mg x 3 doses. Chest tubes were discontinued on postoperative day #2. Insulin was weaned off and transition to metformin and Jardiance. The right IJ cordis was removed on postoperative
day #3. Patient ambulated with cardiac rehab and deemed stable for discharge to home.
Home medication changes:
Stop lisinopril (SBP 110s)
Lipitor increased to high intensity 40 mg daily
Flomax for urinary flow
Protonix for GI prophylaxis while on Plavix
Discharge Plan
-
Patient Disposition: Home (Routine Discharge)
Discharge Diagnosis/Procedures: coronary artery disease/CABG
Condition: Good
Diet: Low Cholesterol, Low Sodium and Diabetic, Carb Controlled
Activity: No strenuous activity
Driving Restrictions: Not until seen by your Dr
Bathing Restrictions: OK to Shower
Other Services: Cardiac Rehab
Specialty Instructions: Weigh Daily- Call MD for wt gain/loss 3 lbs overnight/5 lbs in 1 week
Referrals:
CT Transitional Care Nurse [Outside] (The Cardiothoracic Transitional Care Nurse will call you to set up a visit in 1-2 days.)
Frank Bhakta MD [Active] -
(CT chest in 3 mo to assess pulm nodule with Pulm follow up
Pt is high risk for lung cancer given smoking hx
Witnessed apneas, would benefit from sleep study
Set up visit with sister to help with interpretation)
Titi Stout MD [Active] - 01/14/24 3:30 pm
Hero Paige MD [Active] - 01/27/24 1:10 pm
UNKNOWN,NO INTERVIEW [Family Provider] -
Prescriptions:
New
acetaminophen 325 mg Tablet
650 mg PO Q4HPRN PRN (Reason: mild pain,headache,temp >101F ) Qty: 0 0RF
atorvastatin 40 mg Tablet
40 mg PO QPM Qty: 30 1RF
amlodipine 2.5 mg Tablet
2.5 mg PO DAILY Qty: 30 2RF
clopidogrel 75 mg Tablet
75 mg PO DAILY Qty: 30 1RF
tamsulosin 0.4 mg Capsule
0.4 mg PO DAILY Qty: 30 1RF
oxycodone 5 mg Tablet
5 mg PO .q6h prn PRN (Reason: severe pain) Qty: 20 0RF
pantoprazole 40 mg Tablet,Delayed Release (Dr/Ec)
40 mg PO DAILY Qty: 30 1RF
Continued
aspirin 81 mg Tablet
81 mg PO DAILY
Jardiance 10 mg Tablet
10 mg PO DAILY
metformin
500 mg PO BID
metoprolol succinate
25 mg PO DAILY Qty: 0 0RF
Discontinued
atorvastatin [Lipitor] 20 mg Tablet
20 mg PO HS
lisinopril 10 mg Tablet
10 mg PO DAILY
Discharge Orders:
Discharge Patient (As Directed); Ordered 12/20/23
Ordered By: Britney Montague
Care Plan Goals
Care Plan Goals:
Problem: Readiness for enhanced knowledge related to diagnosis and treatment plan
Goal: Understand your diagnosis and treatment plan needs, including medications if applicable.
Instructions: Know your diagnosis, underlying causes and treatment plan options, including medications if applicable. Consult with your health care team to learn about your diagnosis and treatment plan, including medications if applicable.
Discharge Date and Time
Print Language: DJIBOUTIAN
--- NOTE | 2023-12-20 09:02 | PTCARENOTE ---
Assumed care of patient from maintenance technician 2nd shift RN. ABELO x 3 sitting up in the chair. Denies complaint. SR on monitor. Room air 96% Surgical incisions intact. Pulses palpable. Plan for day discussed.
--- NOTE | 2023-12-20 11:15 | PTCARENOTE ---
Pt showered independently utilizing shower chair. Assisted with dressing. INT s removed along with telemetry. Discharge instructions reviewed with patient and his sister. Questions answered. Doctors note for work provided.
--- NOTE | 2023-12-20 11:16 | CM ---
Patient for DC today, order noted.
Plan is DC to home w/ CT Transitional Care RN.
No add'l needs identified.
== END 2023-12-20 12:04 | disposition home or self-care (01) | DRG 236 ==
LOC: CVICU 17:46
PROVIDERS: Anesthesiology; Clinical Nurse Specialist Acute Care; Hospitalist; Nurse Practitioner; Nurse Practitioner Family; Physician Assistant Medical; Thoracic Surgery (Cardiothoracic Vascular Surgery); ADMITTING PHYSICIAN Internal Medicine; ATTENDING PHYSICIAN Thoracic Surgery (Cardiothoracic Vascular Surgery); CONSULT PHYSICIAN Internal Medicine; CONSULT PHYSICIAN Internal Medicine Critical Care Medicine; CONSULT PHYSICIAN Specialist
PROC: 0TJB8ZZ Inspection of Bladder, Via Natural or Artificial Opening Endoscopic (ICD-10-PCS; 2023-12-15)
PROC: 0BC48ZZ Extirpation of Matter from Right Upper Lobe Bronchus, Via Natural or Artificial Opening Endoscopic (ICD-10-PCS; 2023-12-16)
PROC: B24BZZ4 Ultrasonography of Heart with Aorta, Transesophageal (ICD-10-PCS; 2023-12-16)
PROC: 0BC88ZZ Extirpation of Matter from Left Upper Lobe Bronchus, Via Natural or Artificial Opening Endoscopic (ICD-10-PCS; 2023-12-16)
PROC: 0BC58ZZ Extirpation of Matter from Right Middle Lobe Bronchus, Via Natural or Artificial Opening Endoscopic (ICD-10-PCS; 2023-12-16)
PROC: 5A1221Z Performance of Cardiac Output, Continuous (ICD-10-PCS; 2023-12-16)
PROC: 02100ZC Bypass Coronary Artery, One Artery from Thoracic Artery, Open Approach (ICD-10-PCS; 2023-12-16)
PROC: 0BC68ZZ Extirpation of Matter from Right Lower Lobe Bronchus, Via Natural or Artificial Opening Endoscopic (ICD-10-PCS; 2023-12-16)
PROC: 0BCB8ZZ Extirpation of Matter from Left Lower Lobe Bronchus, Via Natural or Artificial Opening Endoscopic (ICD-10-PCS; 2023-12-16)
PROC: 021109W Bypass Coronary Artery, Two Arteries from Aorta with Autologous Venous Tissue, Open Approach (ICD-10-PCS; 2023-12-16)
PROC: 03BC4ZZ Excision of Left Radial Artery, Percutaneous Endoscopic Approach (ICD-10-PCS; 2023-12-16)
PROC: 5A09357 Assistance with Respiratory Ventilation, Less than 24 Consecutive Hours, Continuous Positive Airway Pressure (ICD-10-PCS; 2023-12-16)
PROC: 06BP4ZZ Excision of Right Saphenous Vein, Percutaneous Endoscopic Approach (ICD-10-PCS; 2023-12-16)
PROC: 02100AW Bypass Coronary Artery, One Artery from Aorta with Autologous Arterial Tissue, Open Approach (ICD-10-PCS; 2023-12-16)
DX: I25.110 Atherosclerotic heart disease of native coronary artery with unstable angina pectoris (principal); J98.11 Atelectasis; D62 Acute posthemorrhagic anemia; T17.590A Other foreign object in bronchus causing asphyxiation, initial encounter; I30.9 Acute pericarditis, unspecified; I10 Essential (primary) hypertension; E78.00 Pure hypercholesterolemia, unspecified; F17.210 Nicotine dependence, cigarettes, uncomplicated; E11.65 Type 2 diabetes mellitus with hyperglycemia; E66.9 Obesity, unspecified; R31.0 Gross hematuria; W44.F9XA Other object of natural or organic material, entering into or through a natural orifice, initial encounter; T45.515A Adverse effect of anticoagulants, initial encounter; L50.9 Urticaria, unspecified; E86.1 Hypovolemia; E87.70 Fluid overload, unspecified; Z68.28 Body mass index [BMI] 28.0-28.9, adult; Z79.82 Long term (current) use of aspirin; Z79.84 Long term (current) use of oral hypoglycemic drugs; Z79.899 Other long term (current) drug therapy; Z82.49 Family history of ischemic heart disease and other diseases of the circulatory system; Z91.148 Patient's other noncompliance with medication regimen for other reason
CPT/HCPCS: 94727; 94729; 36600; 71045; 71046; 71250; 74176; 80048; 80053; 81003; 81015; 82248; 82330; 82565; 82805; 82947; 82962; 83036; 83735; 84100; 84132; 84302; 84520; 85014; 85018; 85025; 85027; 85049; 85610; 85730; 86850; 86900; 86901; 86920; 87086; 93005; 93306; 93312; 93320; 93325; 93880; 94002; 94010; 94660; C1713; P9045